=== PATIENT | female | born 1945 | race Caucasian/White ===

== ENCOUNTER 2018-06-09 12:14 | Emergency (ER) | payer OTHER ==
[~2018-06-09] VITALS: Ht 167.6 cm; Wt 81.7 kg
[~2018-06-09 12:14] MED LIST: ALBIPROI INH; ALBU90OI INH; ALBU90OI61 INH; ALPR1 PO; AMLO5 PO; ASPI81CH PO; AZIT250 PO; Adult Low Dose81 MG PO; Ativan0.5 MG PO; BELSOMRA10 MG PO; BUSP10 PO; CHOL10002; CHOL10002 PO; CIPR500 PO; CITA20 PO; CYCL10 PO; DIAZ10; DIAZ5; ELIQUIS2.5 MG PO; ESOM20 PO; ESTR1; ESTR2; ESTR2 PO; FLUSAL1005 INH; FLUSAL2505 IH; FLUSAL2505 INH; FURO20 PO; GABA300 PO; GLIP10 PO; GLIP5 PO; GUAI600T33 PO; HYDACE5; HYDACE5 PO; HYDMOR4 PO; HYDPAM25 PO; Hair, Skin & N1 EACH PO; INDO25 PO; INSDET100 SC; INSULANPEN SC; Klor-Con M1010 MEQ PO; LANS30EC PO; LAVAP17G PO; LEVSOD100 PO; LOSA25 PO; LOSA50 PO; METPRE4 PO; METPRE4DP PO; MULVITMIND PO; Miralax17 GM PO; NAPR375 PO; Norco 5-325 Ta1 EACH PO; OLME20 PO; OMEP20ER PO; OMEP40CA12 PO; OXYACE5T PO; OXYC10TA19 PO; OXYC15ER PO; OXYC30 PO; OXYC5; OXYC5 PO; PANT40 PO; PHENA100 PO; PRAV20 PO; PROM25 PO; RXCYCL10 PO; RXOXYACE PO; RXTRAM50 PO; SENN187 PO; SPACER IH; SUCR1 PO; THYROID MED; TRAM50 PO; TRAZ100 PO; TRIA80TC TOP; VENL150ER PO; Valium10 MG PO; Ventolin/Prove6.7 GM; Zofran Odt8 MG SL; Zofran8 MG PO
== END 2018-06-09 13:00 | disposition home or self-care (01) ==
LOC: ER 12:14
DX: M25.511 Pain in right shoulder (principal); Z88.8 Allergy status to other drugs, medicaments and biological substances; Z79.4 Long term (current) use of insulin; Z79.899 Other long term (current) drug therapy; Z79.82 Long term (current) use of aspirin; J44.9 Chronic obstructive pulmonary disease, unspecified; F32.9 Major depressive disorder, single episode, unspecified; E11.9 Type 2 diabetes mellitus without complications; I10 Essential (primary) hypertension; Z87.891 Personal history of nicotine dependence
CPT/HCPCS: 96372; 99282-25; J1170

== ENCOUNTER 2018-06-19 06:39 | Emergency (ER) | payer OTHER ==
[~2018-06-19] VITALS: Ht 167.6 cm; Wt 81.7 kg
[2018-06-19] MEDS ORDERED: Miralax17 GM PO (07:15)
== END 2018-06-19 07:24 | disposition home or self-care (01) ==
LOC: ER 06:39
DX: K59.03 Drug induced constipation (principal); R19.5 Other fecal abnormalities; T40.2X5A Adverse effect of other opioids, initial encounter; T47.6X5A Adverse effect of antidiarrheal drugs, initial encounter; Z88.8 Allergy status to other drugs, medicaments and biological substances; Z79.899 Other long term (current) drug therapy; Z79.4 Long term (current) use of insulin; Z79.82 Long term (current) use of aspirin; J44.9 Chronic obstructive pulmonary disease, unspecified; F32.9 Major depressive disorder, single episode, unspecified; F41.9 Anxiety disorder, unspecified; E11.9 Type 2 diabetes mellitus without complications; I10 Essential (primary) hypertension; Z87.891 Personal history of nicotine dependence
CPT/HCPCS: 99283

== ENCOUNTER 2018-06-20 06:31 | Emergency (ER) | payer OTHER ==
[~2018-06-20] VITALS: Ht 167.6 cm; Wt 81.7 kg
[2018-06-20 08:03] LABS: BASOPHILS ABSOLUTE AUTO 0.05 K/mm3 (0.00-0.23); BASOPHILS PERCENT AUTO 0 % (0-2); EOSINOPHILS ABSOLUTE AUTO 0.11 K/mm3 (0.00-0.68); EOSINOPHILS PERCENT AUTO 1 % (0-6); Hematocrit 45.2 % (33.0-51.0); Hemoglobin 14.5 g/dL (11.5-16.0); IMMATURE GRAN ABSOLUTE AUTO 0.04 K/mm3 (0.00-0.10); IMMATURE GRAN PERCENT AUTO 0 % (0-1); LYMPHOCYTES ABSOLUTE AUTO 2.53 K/mm3 (0.84-5.20); LYMPHOCYTES PERCENT AUTO 20 % (21-46); MONOCYTES ABSOLUTE AUTO 1.31 K/mm3 (0.16-1.47); MONOCYTES PERCENT AUTO 11 % (4-13); Mean Corpuscular HGB 29.1 pg (26.0-34.0); Mean Corpuscular HGB Conc 32.1 g/dL (31.5-36.5); Mean Corpuscular Volume 91 fL (80-100); Mean Platelet Volume 11.4 fL (9.1-12.4); NEUTROPHILS ABSOLUTE AUTO 8.48 K/mm3 (1.96-9.15); NEUTROPHILS PERCENT AUTO 68 % (41-73); Platelet Count 177 K/mm3 (150-400); RDW Coefficient Variation 14.3 % (11.7-14.2); Red Blood Cell Count 4.99 M/mm3 (3.80-5.20); White Blood Cell Count 12.52 K/mm3 (4.00-11.30)
[2018-06-20 08:18] LABS: Alanine Aminotransfer (ALT/SGP 19 U/L (12-78); Albumin, Blood 2.9 g/dL (3.4-5.0); Albumin/Globulin Ratio 0.7 (0.8-1.8); Alk Phos 64 U/L (50-136); Anion Gap 9 mmol/L (6-16); Aspartate Aminotrans (AST/SGOT 21 U/L (12-37); Bilirubin, Total 1.3 mg/dL (0.1-1.0); Blood Urea Nitrogen 17 mg/dL (8-24); Bun/Creatinine Ratio 11.5 (12.0-20.0); CO2, Blood 28 mmol/L (21-32); Calcium, Blood 8.5 mg/dL (8.5-10.1); Chloride, Blood 99 mmol/L (98-108); Creatinine, Blood 1.48 mg/dL (0.40-1.00); Globulin, Blood 4.2 g/dL (2.2-4.0); Glomerular Filtration Rate 37 (60-); Glucose, Blood 121 mg/dL (70-99); Potassium, Blood 4.2 mmol/L (3.5-5.5); Sodium, Blood 136 mmol/L (136-145); Total Protein, Blood 7.1 g/dL (6.4-8.2)
[2018-06-20 09:29] LABS: Source, Urine Clean Catch
[2018-06-20 09:32] LABS: Bilirubin, Urine Neg (Neg); Blood, Urine 4+ (Neg); Glucose Qualitative, Urine Neg (Neg); Ketones, Urine Neg (Neg); Leukocyte Esterase, Urine Neg (Neg); Nitrite, Urine Neg (Neg); Protein, Urine 3+ (Neg); Urobilinogen, Urine 2+ (Normal); pH, Urine 6.5 (5.0-8.0)
[2018-06-20 09:51] LABS: Appearance, Urine Clear (Clear); Bacteria Not Seen /hpf; Color, Urine Yellow (P-Yellow); Squamous Epithelial Cells Not Seen /hpf (Few); White Blood Cells, Urine Not Seen /hpf (0-5)
== END 2018-06-20 10:58 | disposition home or self-care (01) ==
LOC: ER 06:31
PROVIDERS: Emergency Medicine
DX: R10.9 Unspecified abdominal pain (principal); J44.9 Chronic obstructive pulmonary disease, unspecified; F32.9 Major depressive disorder, single episode, unspecified; F41.9 Anxiety disorder, unspecified; E11.9 Type 2 diabetes mellitus without complications; I10 Essential (primary) hypertension; Z87.891 Personal history of nicotine dependence; Z88.8 Allergy status to other drugs, medicaments and biological substances; Z79.899 Other long term (current) drug therapy
CPT/HCPCS: 36415; 74177; 76705; 80053; 81001; 83690; 85025; 96361; 96374; 96375; 99284-25; J1170; J2405; J7120; Q9967

== ENCOUNTER 2019-05-27 09:22 | Emergency (ER) | payer OTHER ==
[~2019-05-27] VITALS: Ht 167.6 cm; Wt 77.1 kg
[~2019-05-27 09:22] MED LIST changes: -INDO25 PO; +Indomethacin25 MG PO; +LEVSOD50 PO; +PROAIR RESPICL90 MCG INH; -Ventolin/Prove6.7 GM
[2019-05-27] MEDS ORDERED: OXYCODONE HCL E15 MG PO (09:52)
[2019-05-28] MEDS ORDERED: METPRE4DP PO (21:04)
== END 2019-05-27 11:12 | disposition home or self-care (01) ==
LOC: ER 09:22
DX: M54.32 Sciatica, left side (principal); J44.9 Chronic obstructive pulmonary disease, unspecified; E11.22 Type 2 diabetes mellitus with diabetic chronic kidney disease; I12.9 Hypertensive chronic kidney disease with stage 1 through stage 4 chronic kidney disease, or unspecified chronic kidney disease; N18.9 Chronic kidney disease, unspecified; F41.8 Other specified anxiety disorders; Z87.891 Personal history of nicotine dependence; Z79.82 Long term (current) use of aspirin; Z79.4 Long term (current) use of insulin; Z79.899 Other long term (current) drug therapy
CPT/HCPCS: 96372; 99283-25; J1170

== ENCOUNTER 2019-05-28 15:56 | Emergency (ER) | payer OTHER ==
[~2019-05-28] VITALS: Ht 167.6 cm; Wt 77.1 kg
[~2019-05-28 15:56] MED LIST changes: +OXYCODONE HCL E15 MG PO
[2019-05-28 16:29] LABS: BASOPHILS ABSOLUTE AUTO 0.05 K/mm3 (0.00-0.23); BASOPHILS PERCENT AUTO 1 % (0-2); EOSINOPHILS ABSOLUTE AUTO 0.63 K/mm3 (0.00-0.68); EOSINOPHILS PERCENT AUTO 7 % (0-6); Hematocrit 49.9 % (33.0-51.0); Hemoglobin 15.8 g/dL (11.5-16.0); IMMATURE GRAN ABSOLUTE AUTO 0.02 K/mm3 (0.00-0.10); IMMATURE GRAN PERCENT AUTO 0 % (0-1); LYMPHOCYTES ABSOLUTE AUTO 3.81 K/mm3 (0.84-5.20); LYMPHOCYTES PERCENT AUTO 44 % (21-46); MONOCYTES ABSOLUTE AUTO 0.69 K/mm3 (0.16-1.47); MONOCYTES PERCENT AUTO 8 % (4-13); Mean Corpuscular HGB 29.7 pg (26.0-34.0); Mean Corpuscular HGB Conc 31.7 g/dL (31.5-36.5); Mean Corpuscular Volume 94 fL (80-100); Mean Platelet Volume 11.2 fL (9.1-12.4); NEUTROPHILS ABSOLUTE AUTO 3.43 K/mm3 (1.96-9.15); NEUTROPHILS PERCENT AUTO 40 % (41-73); Platelet Count 168 K/mm3 (150-400); RDW Coefficient Variation 13.9 % (11.7-14.2); RDW Standard Deviation 48.2 fL (35.1-46.3); Red Blood Cell Count 5.32 M/mm3 (3.80-5.20); White Blood Cell Count 8.63 K/mm3 (4.00-11.30)
[2019-05-28 16:49] LABS: C-REACTIVE PROTEIN, EXT RANGE 0.375 mg/dL (0.000-0.300)
[2019-05-28 16:51] LABS: Albumin, Blood 3.7 g/dL (3.4-5.0); Albumin/Globulin Ratio 0.9 (0.8-1.8); Bilirubin, Total 0.7 mg/dL (0.1-1.0); Bun/Creatinine Ratio 12.5 (12.0-20.0); Calcium, Blood 8.6 mg/dL (8.5-10.1); Creatinine, Blood 1.44 mg/dL (0.40-1.00); Potassium, Blood 4.7 mmol/L (3.5-5.5); Total Protein, Blood 7.7 g/dL (6.4-8.2)
[2019-05-28 17:44] LABS: Source, Urine Clean Catch
[2019-05-28 17:51] LABS: Bilirubin, Urine Neg (Neg); Blood, Urine 2+ (Neg); Glucose Qualitative, Urine Neg (Neg); Ketones, Urine Neg (Neg); Leukocyte Esterase, Urine 2+ (Neg); Nitrite, Urine Neg (Neg); Protein, Urine 3+ (Neg); Urobilinogen, Urine NORM (Normal); pH, Urine 6.5 (5.0-8.0)
[2019-05-28 17:57] LABS: Appearance, Urine Hazy (Clear); Color, Urine Pale Yellow (P-Yellow)
[2019-05-28 17:59] LABS: Red Blood Cells, Urine 0-2 /hpf (0-2); Squamous Epithelial Cells Few /hpf (Few)
[2019-05-28 18:00] LABS: Bacteria Few /hpf
[2019-05-28] MEDS ORDERED: METPRE4DP PO (21:04)
== END 2019-05-28 21:15 | disposition home or self-care (01) ==
LOC: ER 15:56
PROVIDERS: Physician Assistant
DX: M54.32 Sciatica, left side (principal); Z88.8 Allergy status to other drugs, medicaments and biological substances; Z79.4 Long term (current) use of insulin; Z79.899 Other long term (current) drug therapy; Z79.82 Long term (current) use of aspirin; J44.9 Chronic obstructive pulmonary disease, unspecified; E11.9 Type 2 diabetes mellitus without complications; I10 Essential (primary) hypertension; F32.9 Major depressive disorder, single episode, unspecified; F41.9 Anxiety disorder, unspecified; Z87.891 Personal history of nicotine dependence
CPT/HCPCS: 36415; 72100; 80053; 81001; 85025; 85651; 86140; 87086; 96372; 99283-25; J1170

== ENCOUNTER 2019-06-16 09:01 | Inpatient (IN) | payer OTHER ==
[~2019-06-16] VITALS: Ht 167.6 cm; Wt 74.0 kg
[2019-06-16 09:34] LABS: BASOPHILS ABSOLUTE AUTO 0.04 K/mm3 (0.00-0.23); BASOPHILS PERCENT AUTO 0 % (0-2); EOSINOPHILS ABSOLUTE AUTO 0.03 K/mm3 (0.00-0.68); EOSINOPHILS PERCENT AUTO 0 % (0-6); Hemoglobin 17.9 g/dL (11.5-16.0); IMMATURE GRAN ABSOLUTE AUTO 0.08 K/mm3 (0.00-0.10); IMMATURE GRAN PERCENT AUTO 0 % (0-1); LYMPHOCYTES ABSOLUTE AUTO 4.42 K/mm3 (0.84-5.20); LYMPHOCYTES PERCENT AUTO 22 % (21-46); MONOCYTES ABSOLUTE AUTO 1.44 K/mm3 (0.16-1.47); MONOCYTES PERCENT AUTO 7 % (4-13); Mean Corpuscular HGB 30.4 pg (26.0-34.0); Mean Corpuscular HGB Conc 34.4 g/dL (31.5-36.5); Mean Corpuscular Volume 88 fL (80-100); Mean Platelet Volume 10.6 fL (9.1-12.4); NEUTROPHILS ABSOLUTE AUTO 14.49 K/mm3 (1.96-9.15); NEUTROPHILS PERCENT AUTO 71 % (41-73); Platelet Count 280 K/mm3 (150-400); RDW Coefficient Variation 13.8 % (11.7-14.2); RDW Standard Deviation 44.4 fL (35.1-46.3); Red Blood Cell Count 5.89 M/mm3 (3.80-5.20)
[2019-06-16 09:46] LABS: Albumin, Blood 3.5 g/dL (3.4-5.0); Albumin/Globulin Ratio 0.8 (0.8-1.8); Bun/Creatinine Ratio 33.6 (12.0-20.0); Calcium, Blood 9.5 mg/dL (8.5-10.1); Creatinine, Blood 1.16 mg/dL (0.40-1.00); Globulin, Blood 4.2 g/dL (2.2-4.0); Potassium, Blood 3.5 mmol/L (3.5-5.5); Total Protein, Blood 7.7 g/dL (6.4-8.2); Troponin I 0.019 ng/mL (0.000-0.040)
[2019-06-16 12:10] LABS: Source, Urine Catheter
[2019-06-16 12:21] LABS: Bilirubin, Urine Neg (Neg); Blood, Urine 4+ (Neg); Glucose Qualitative, Urine 2+ (Neg); Ketones, Urine 2+ (Neg); Leukocyte Esterase, Urine 2+ (Neg); Nitrite, Urine Neg (Neg); Protein, Urine 3+ (Neg); Specific Gravity, Urine 1.015 (1.003-1.022); Urobilinogen, Urine 3+ (Normal); pH, Urine 6.5 (5.0-8.0)
[2019-06-16 12:38] LABS: Appearance, Urine Hazy (Clear); Color, Urine Yellow (P-Yellow)
[2019-06-16 12:41] LABS: Bacteria Mod /hpf; Squamous Epithelial Cells Mod /hpf (Few); Transitional Epithelial Cells Rare /hpf (0-Rare)
[2019-06-16] MEDS ORDERED: DIAZ5 PO (13:33)
[2019-06-16 15:27] LABS: Magnesium, Blood 2.2 mg/dL (1.6-2.4)
[2019-06-16 15:29] LABS: Phosphorus, Blood 2.9 mg/dL (2.5-4.9); Thyroid Stimulating Hormone 5.24 uIU/mL (0.360-4.800)
[2019-06-16 19:52] LABS: Influenza A Negative (NEGATIVE); Influenza B Negative (NEGATIVE)
[2019-06-17 04:22] LABS: BASOPHILS ABSOLUTE AUTO 0.04 K/mm3 (0.00-0.23); BASOPHILS PERCENT AUTO 0 % (0-2); EOSINOPHILS ABSOLUTE AUTO 0.12 K/mm3 (0.00-0.68); EOSINOPHILS PERCENT AUTO 1 % (0-6); Hematocrit 49.2 % (33.0-51.0); Hemoglobin 16.4 g/dL (11.5-16.0); IMMATURE GRAN ABSOLUTE AUTO 0.05 K/mm3 (0.00-0.10); IMMATURE GRAN PERCENT AUTO 0 % (0-1); LYMPHOCYTES ABSOLUTE AUTO 4.18 K/mm3 (0.84-5.20); LYMPHOCYTES PERCENT AUTO 31 % (21-46); MONOCYTES ABSOLUTE AUTO 1.25 K/mm3 (0.16-1.47); MONOCYTES PERCENT AUTO 9 % (4-13); Mean Corpuscular HGB 30.1 pg (26.0-34.0); Mean Corpuscular HGB Conc 33.3 g/dL (31.5-36.5); Mean Corpuscular Volume 90 fL (80-100); Mean Platelet Volume 10.7 fL (9.1-12.4); NEUTROPHILS ABSOLUTE AUTO 8.01 K/mm3 (1.96-9.15); NEUTROPHILS PERCENT AUTO 59 % (41-73); Platelet Count 242 K/mm3 (150-400); RDW Coefficient Variation 13.9 % (11.7-14.2); RDW Standard Deviation 46.3 fL (35.1-46.3); Red Blood Cell Count 5.44 M/mm3 (3.80-5.20); White Blood Cell Count 13.65 K/mm3 (4.00-11.30)
[2019-06-17 04:39] LABS: Albumin, Blood 2.9 g/dL (3.4-5.0); Albumin/Globulin Ratio 0.8 (0.8-1.8); Bilirubin, Total 0.9 mg/dL (0.1-1.0); Bun/Creatinine Ratio 24.1 (12.0-20.0); Calcium, Blood 8.6 mg/dL (8.5-10.1); Creatinine, Blood 0.99 mg/dL (0.40-1.00); Globulin, Blood 3.5 g/dL (2.2-4.0); Potassium, Blood 3.9 mmol/L (3.5-5.5); Total Protein, Blood 6.4 g/dL (6.4-8.2)
--- NOTE | 2019-06-17 06:25 | NUR ---
SHIFT SUMMARY PT ALERT AND ORIENTED TO SELF; PT VERY ANXIOUS AND CONTINUALLY EXPRESSES DISSATISFACTION W/ STAFF; MAKES EXAGERATED STATEMENTS; PT REASSURED OF CARE AND TREATMENT AND ENCOURAGED OF PROGRESS MADE THROUGH THE NIGHT; BP ELEVATED AND PRN HYDRALAZINED ADMINISTERED PER EMAR; Q2 CBG PERFORMED TO MONITOR; D5 GTT AT 100/HR; CALL LIGHT IN REACH; BED IN LOWEST POSITION; WILL CONTINUE TO MONITOR CLOSELY UNTIL HAND OFF TO DAY SHIFT RN.
--- NOTE | 2019-06-17 18:15 | NUR ---
SHIFT SUMMARY NO ACUTE CHANGES NOTED THROUGH THE SHIFT. PT REMAINS A&O X4, RESP UNLABORED, 1 ASSIST TO THE BSC. BP REMAINS ELEVATED, IV HYDRALAZINE x1, PT CONTINUES TO C/O NAUSEA/ABD PAIN, SHE HAS BEEN MEDICATED PRN PER EMAR. NO BM NOTED, STATES SHE IS PASSING FLATUES, NO EMESIS. PT CONTINUES TO BE ANXIOUS AND DEMANDING, AND STATES THE STAFF IS TELLING HER THINGS ABOUT HER CARE THAT HAVE NOT NOT HAPPENED. SHE STATES THAT "YOU TOLD ME I HAD A BP OF "267/8SOMETHING" AFTER THAT SHE STARTED TO RAISE HER VOIVE AND ACCUSE OF LYING TO HER AND WANTING TO CAUSE HARM. THE NOC NURSE STATED IN REPORT THAT THE PT HAD ACCUSED HER OF WANTING TO CAUSE HARM WELL. THE CHARGE NURSE WAS NOTIFIED & EVENING MEDS WERE GIVEN BY HER. CALL LIGHT REMAINS IN REACH. REPORT WILL BE GIVEN TO NOC RN
--- NOTE | 2019-06-18 01:14 | NUR ---
ARIVED TO FLOOR TRANSFER FROM PCU 6, RECIEVED REPORT FROM HARVINDER ABDI. PT ARRIVED BY BED.
--- NOTE | 2019-06-18 01:30 | NUR ---
PT A&O; PT ON RA W/ O2 SATS >94; LUNG SOUNDS DIM IN BASES; PT USES BEDSIDE COMMODE; CBG REPORTED TO PROVIDER AND ORDERS GIVEN TO DC D5 GTT; TELE REMOVED AND PT PREPARED TO TRANSFER TO MED FLOOR; REPORT GIVEN TO MED FLOOR RN AND PT TRANSFERED TO VIA BED W/ AID AND RN.
--- NOTE | 2019-06-18 01:57 | NUR ---
TRANSFER ASSESSMENT AOX4. FOLLOWS DIRECTIONS, ANSWERS QUESTIONS APPROPRIATELY. REPORTS 7/10 PAIN IN L LEG/FOOT & BACK, MEDICATED W/25 MCG FENTANYL PER ORDERS & WHEN REASSESSED PT DENIES ANY RELIEF. L FOOT HAS SWELLING ON SOLE & ANKLE, IS RED/TENDER/WARM TO TOUCH. REPORTS NAUSEA, NO EMESIS NOTED MEDICATED W/ZOFRAN, ABD NON TENDER TO PALPATION. REPORTS FEELING ANXIOUS & IS TEARFUL DURING MY ASSESSMENT STATES HER DAUGHTER 15 YRS AGO & STRUGGLES W/THIS LOSS DAILY. STARTS TALKING ABOUT HOW SHE DOESN'T KEEP HER REFRIGERATOR FULL "BECAUSE I'M AFRAID IT'S GOING TO GET ME." STATES SHE NORMALLY TAKES DIAZEPAM BUT IT WAS RECENTLY DC'D BY HER PRIMARY DR BECAUSE SHE WAS TAKING OXYCODONE & SHE WAS TOLD BOTH COULD NOT BE TAKEN AT SAME TIME. BP IS ELEVATED @177/56, GAVE 10MG HYDRALAZINE & BP TRENDED DOWN TO 167/53. CALL LIGHT IN REACH. TM.
--- NOTE | 2019-06-18 03:05 | NUR ---
ANXIOUS/TEARFUL ANSWERED PTS CALL LIGHT, SHE ASKED FOR DIFFERENT UNDERWEAR STATING THE ONES SHE WAS WEARING WHERE BOTHERING HER THEN STATES SHE HAS ITCHY EYES & ASKS FOR EYE DROPS, INFORMED PT I WOULD ASK HOSPITALIST. THEN PT STATED SHE WAS HAVING DIFFICULTY SLEEPING & GOT TEARFUL "I CAN'T TURN OFF MY BRAIN, I KEEP THINKING ABOUT ALL THE BAD THINGS." INFORMED PT I WOULD CALL HOSPITALIST & SEE IF THERE WAS ANYTHING ELSE WE COULD GIVE HER. THEN PT STARTED HANDING ME DIFFERENT PILLS FROM HER PURSE THAT WHERE UNLABELED & STATED 3 OF THEM WHERE OXYCODONE, INFORMED CHARGE NURSE BRYCE NICHOLSON & PLACED ALL LOOSE MEDS IN A PLASTIC BAG IN LOCK BOX IN ROOM. WCTM.
--- NOTE | 2019-06-18 06:44 | NUR ---
SHIFT SUMMARY AOX4. ANXIOUS, TEARFUL EARLIER IN SHIFT, READ PREVIOUS NOTE. FINALLY FELL ASLEEP AROUND 0345 THIS AM & HAS GOTTEN ROUGHLY 3 HRS OF SLEEP SO FAR. DENIES DYSPNEA OR FURTHER NAUSEA THIS AM. REPORTS PAIN IN BACK THIS AM & WAS MEDICATED W/TYLENOL PER ORDERS. IS PLEASENT & COOPERATIVE W/CARE. STATES SHE IS HOPING SHE GETS TO GO HOME. CALL LIGHT IN REACH. TM.
[2019-06-18 07:45] LABS: BASOPHILS ABSOLUTE AUTO 0.06 K/mm3 (0.00-0.23); BASOPHILS PERCENT AUTO 1 % (0-2); EOSINOPHILS ABSOLUTE AUTO 0.24 K/mm3 (0.00-0.68); EOSINOPHILS PERCENT AUTO 2 % (0-6); Hematocrit 50.3 % (33.0-51.0); Hemoglobin 16.7 g/dL (11.5-16.0); IMMATURE GRAN ABSOLUTE AUTO 0.02 K/mm3 (0.00-0.10); IMMATURE GRAN PERCENT AUTO 0 % (0-1); LYMPHOCYTES ABSOLUTE AUTO 4.69 K/mm3 (0.84-5.20); LYMPHOCYTES PERCENT AUTO 39 % (21-46); MONOCYTES ABSOLUTE AUTO 1.15 K/mm3 (0.16-1.47); MONOCYTES PERCENT AUTO 10 % (4-13); Mean Corpuscular HGB 30.1 pg (26.0-34.0); Mean Corpuscular HGB Conc 33.2 g/dL (31.5-36.5); Mean Corpuscular Volume 91 fL (80-100); Mean Platelet Volume 10.4 fL (9.1-12.4); NEUTROPHILS ABSOLUTE AUTO 5.92 K/mm3 (1.96-9.15); NEUTROPHILS PERCENT AUTO 49 % (41-73); Platelet Count 253 K/mm3 (150-400); RDW Coefficient Variation 13.8 % (11.7-14.2); RDW Standard Deviation 45.8 fL (35.1-46.3); Red Blood Cell Count 5.55 M/mm3 (3.80-5.20); White Blood Cell Count 12.08 K/mm3 (4.00-11.30)
[2019-06-18 08:15] LABS: Albumin/Globulin Ratio 0.8 (0.8-1.8); Bilirubin, Total 0.9 mg/dL (0.1-1.0); Bun/Creatinine Ratio 13.8 (12.0-20.0); Calcium, Blood 8.6 mg/dL (8.5-10.1); Creatinine, Blood 1.23 mg/dL (0.40-1.00); Globulin, Blood 3.6 g/dL (2.2-4.0); Potassium, Blood 3.8 mmol/L (3.5-5.5); Total Protein, Blood 6.6 g/dL (6.4-8.2)
[2019-06-18] MEDS ORDERED: AMLO5 PO (11:38)
[2019-06-18] MEDS ORDERED: ONE DAILY FOR1 EAC3 PO (11:39)
[2019-06-18] MEDS ORDERED: ALLO100 PO (11:49)
--- NOTE | 2019-06-18 17:21 | NUR ---
SUMMARY PT IS A/O X4, GENERALLY PLEASANT HOWEVER EASILY ANXIOUS, DR LOERA START VISTORIL 25 MG TODAY R/T. PT STATE NO NAUSEA HOWEVER APPETITE POOR, STATE FOOD CHOICES NOT APPETIZING. DX UTI, IV ANTIBX CONTINUE, SHE IS AFEBRILE, WBC 12. SHE HAS HAD MULT BM'S TODAY. SBP ELEVATED THIS AFTERNOON, 174, PRN HYDRALAZINE GIVEN ACCORDING TO PARAMETERS. SHE C/O CHR BACK PAIN, PRN FENANYL GIVEN FOR RELIEF.
[2019-06-19 05:47] LABS: Bun/Creatinine Ratio 14.4 (12.0-20.0); Creatinine, Blood 1.32 mg/dL (0.40-1.00); Potassium, Blood 3.9 mmol/L (3.5-5.5)
--- NOTE | 2019-06-19 05:47 | NUR ---
SHIFT SUMMARY AOX4. JAMUL. BP ELEVATED LAST NIGHT @174/57, GAVE HYDRALAZINE PER ORDERS & BP DECREASED TO 124/87, VSS REST OF SHIFT. DENIES ANY NAUSEA, EMESIS OR DYSPNEA. REPORTS CONTANT 6-01/13 PAIN L LEG & ALLOVER, MEDICATED W/TYLENOL 1X W/NO RELIEF OF PAIN & 3X W/FENTANYL W/LITTLE TO NO RELIEF OF PAIN. REPORTED DRY ITCHY SORE THROAT & STATED SHE NORMALLY TAKES CEPACOL LOSANGES, RECIEVED ORDER FOR LOSANGES FROM DR PAZ. REPORTS ANXIOUSNESS LAST NIGHT, GAVE 5MG VALIUM FIRST, 2 HRS LATER PT STILL REPORTED FEELING ANXIOUS SO I GAVE VISTARIL & MELATONIN PER ORDERS & PT WAS ABLE TO FINALLY GET SOME REST. HAS TOLERATED SMALL AMOUNTS REG DIET. CALL LIGHT IN REACH. WCTM.
--- NOTE | 2019-06-19 14:24 | NUR ---
discharge PT STATE FEELING IMPROVED, STATE SHE WANT TO GO HOME TODAY. POLE SHAVER HELPER ASSIST HER TO SHOWER, SHE DRESS IN STREET CLOTHES DETERMINED SHE WILL GO HOME. SHE IS GENERALLY PLEASANT HOWEVER ANXIOUS, SOMEWHAT SUSPICIOUS. DR GUIDO IN TO SEE HER THIS AFTERNOON. STATE OK FOR D/C HOME, NO NEW MEDS. IV D/C INTACT. D/C INSTRUCT PROVIDED. FRIEND IN TO PICK HER UP, POLE SHAVER HELPER PROVIDE W/C TRANSFER FROM HOSP.
== END 2019-06-19 13:55 | disposition home or self-care (01) | DRG 690 ==
LOC: ER 09:01 → PCU 15:03 → MEDS 06-18 01:08
PROVIDERS: Nurse Practitioner Acute Care; Physician Assistant; ADMIT Internal Medicine
DX: N39.0 Urinary tract infection, site not specified (principal); F11.20 Opioid dependence, uncomplicated; R11.2 Nausea with vomiting, unspecified; E11.649 Type 2 diabetes mellitus with hypoglycemia without coma; I16.0 Hypertensive urgency; I12.9 Hypertensive chronic kidney disease with stage 1 through stage 4 chronic kidney disease, or unspecified chronic kidney disease; N18.3 Chronic kidney disease, stage 3 (moderate); J44.9 Chronic obstructive pulmonary disease, unspecified; E11.22 Type 2 diabetes mellitus with diabetic chronic kidney disease; E03.9 Hypothyroidism, unspecified; K74.60 Unspecified cirrhosis of liver; K21.9 Gastro-esophageal reflux disease without esophagitis; G89.29 Other chronic pain; M54.9 Dorsalgia, unspecified; F32.9 Major depressive disorder, single episode, unspecified; F41.9 Anxiety disorder, unspecified; Z87.891 Personal history of nicotine dependence; Z86.711 Personal history of pulmonary embolism; Z88.8 Allergy status to other drugs, medicaments and biological substances; Z79.82 Long term (current) use of aspirin; Z79.4 Long term (current) use of insulin; Z79.899 Other long term (current) drug therapy
CPT/HCPCS: 36415; 51701; 73630; 74176; 76705; 80048; 80053; 81001; 82947; 83036; 83605; 83690; 83735; 84100; 84439; 84443; 84484; 85025; 87086; 87804; 93005; 93010; 94640; 94760; 96361; 96365; 96367; 96375; 96376; 99285-25; A9270; A9270-GY; C9113; J0360; J0696; J2270; J2405; J2550; J2765; J3010; J3360; J3480; J7030; J7042; J7050; J7799; Q0177

== ENCOUNTER 2019-07-05 16:15 | Inpatient (IN) | payer OTHER ==
[~2019-07-05] VITALS: Ht 167.6 cm; Wt 86.1 kg
[~2019-07-05 16:15] MED LIST changes: +ALLO100 PO; -CHOL10002 PO; +DIAZ5 PO; -OMEP40CA12 PO; +OMEPRAZOLE20 MG PO; +ONE DAILY FOR1 EAC3 PO; -OXYCODONE HCL E15 MG PO; +ROXYBOND5 MG PO; +VITAMIN D32000 UNI3 PO
[2019-07-05 16:57] LABS: BASOPHILS ABSOLUTE AUTO 0.03 K/mm3 (0.00-0.23); BASOPHILS PERCENT AUTO 0 % (0-2); EOSINOPHILS ABSOLUTE AUTO 0.07 K/mm3 (0.00-0.68); EOSINOPHILS PERCENT AUTO 1 % (0-6); Hematocrit 40.7 % (33.0-51.0); Hemoglobin 13.6 g/dL (11.5-16.0); IMMATURE GRAN ABSOLUTE AUTO 0.03 K/mm3 (0.00-0.10); IMMATURE GRAN PERCENT AUTO 0 % (0-1); LYMPHOCYTES ABSOLUTE AUTO 1.12 K/mm3 (0.84-5.20); LYMPHOCYTES PERCENT AUTO 12 % (21-46); MONOCYTES ABSOLUTE AUTO 0.49 K/mm3 (0.16-1.47); MONOCYTES PERCENT AUTO 5 % (4-13); Mean Corpuscular HGB 30.8 pg (26.0-34.0); Mean Corpuscular HGB Conc 33.4 g/dL (31.5-36.5); Mean Corpuscular Volume 92 fL (80-100); Mean Platelet Volume 11.3 fL (9.1-12.4); NEUTROPHILS PERCENT AUTO 82 % (41-73); Platelet Count 266 K/mm3 (150-400); RDW Coefficient Variation 13.9 % (11.7-14.2); RDW Standard Deviation 47.6 fL (35.1-46.3); Red Blood Cell Count 4.41 M/mm3 (3.80-5.20); White Blood Cell Count 9.54 K/mm3 (4.00-11.30)
[2019-07-05 17:10] LABS: International Normalized Ratio 0.99; Prothrombin Time Results 10.6 Sec (9.7-11.5)
[2019-07-05 17:15] LABS: Alanine Aminotransfer (ALT/SGP 28 U/L (12-78); Albumin, Blood 3.1 g/dL (3.4-5.0); Albumin/Globulin Ratio 0.8 (0.8-1.8); Alk Phos 95 U/L (50-136); Anion Gap 7 mmol/L (6-16); Aspartate Aminotrans (AST/SGOT 32 U/L (12-37); Bilirubin, Total 0.7 mg/dL (0.1-1.0); Blood Urea Nitrogen 41 mg/dL (8-24); Bun/Creatinine Ratio 17.6 (12.0-20.0); CO2, Blood 25 mmol/L (21-32); Calcium, Blood 8.8 mg/dL (8.5-10.1); Chloride, Blood 91 mmol/L (98-108); Creatinine, Blood 2.33 mg/dL (0.40-1.00); Ethanol (Alcohol), Blood, Med <3 mg/dL; Glomerular Filtration Rate 22 (60-); Glucose, Blood 54 mg/dL (70-99); Potassium, Blood 5.5 mmol/L (3.5-5.5); Sodium, Blood 123 mmol/L (136-145); Total Protein, Blood 7.1 g/dL (6.4-8.2)
[2019-07-05 20:50] LABS: Thyroid Stimulating Hormone 4.66 uIU/mL (0.360-4.800)
--- NOTE | 2019-07-05 21:30 | NUR ---
2120 PT TO ROOM 313 PER CART FROM ER; REPORT RECEIVED FROM JIN CARD; ALERT AND ORIENTED X 1; ABLE TO FOLLOW SIMPLE VERBAL COMMANDS; BED ALARM APPLIED.
[2019-07-06 00:18] LABS: Bun/Creatinine Ratio 19.7 (12.0-20.0); Calcium, Blood 8.1 mg/dL (8.5-10.1); Creatinine, Blood 1.98 mg/dL (0.40-1.00); Potassium, Blood 5.2 mmol/L (3.5-5.5)
--- NOTE | 2019-07-06 01:03 | NUR ---
CBG PER LAB 63; PT DRANK 240ML APPLE JUICE (VOICED DISLIKE FOR MILK PRODUCTS); THIS NURSE ADVISED TRACY NICHOLSON RN, CHARGE NURSE; PT ALERT AND ABLE TO TAKE FOOD AND FLUIDS. PLAN TO RECHECK CBG IN 30 MINUTES.
[2019-07-06 05:39] LABS: Bun/Creatinine Ratio 19.8 (12.0-20.0); Calcium, Blood 8.2 mg/dL (8.5-10.1); Creatinine, Blood 1.82 mg/dL (0.40-1.00); Potassium, Blood 5.3 mmol/L (3.5-5.5)
--- NOTE | 2019-07-06 07:48 | NUR ---
ASSUMED CARE OF PATIENT. PATIENT PLEASANT AND ALERT TO SELF AND PLACE. SHE IS MILDLY CRANKY SHE NOTES THAT WE HAVE BEEN "BUGGING HER TOO MUCH" WITH THE BLOOD SUGARS AND IS GETTING CRANKY. SHE HAS A WARM BLANKET. BLOOD SUGAR WAS TAKEN THIS MORNING AT 0730 AND CAME BACK AT 99 ON D5/0.5NS.
--- NOTE | 2019-07-06 07:52 | NUR ---
UNABLE TO UPDATE PATIENT'S MEDS. SHE NOTES "I DON'T TAKE ANYTHING AT HOME ANYWAYS" BUT DID TELL ME SHE FILLS HER MEDICATIONS [facility]. WILL REQUEST A MEDICATION LIST FROM THE PHARMACY WHEN THEY OPEN.
[2019-07-06 08:01] LABS: Bun/Creatinine Ratio 19.3 (12.0-20.0); Creatinine, Blood 1.76 mg/dL (0.40-1.00); Potassium, Blood 5.5 mmol/L (3.5-5.5)
[2019-07-06 09:38] LABS: Bilirubin, Urine Neg (Neg); Blood, Urine 1+ (Neg); Glucose Qualitative, Urine Neg (Neg); Ketones, Urine Neg (Neg); Leukocyte Esterase, Urine 1+ (Neg); Nitrite, Urine Neg (Neg); Protein, Urine 2+ (Neg); Source, Urine Clean Catch; Specific Gravity, Urine 1.015 (1.003-1.022); Urobilinogen, Urine NORM (Normal)
[2019-07-06 09:49] LABS: Appearance, Urine Clear (Clear); Color, Urine Yellow (P-Yellow)
[2019-07-06 09:50] LABS: White Blood Cells, Urine 0-2 /hpf (0-5)
[2019-07-06 09:51] LABS: Bacteria Not Seen /hpf; Red Blood Cells, Urine 0-2 /hpf (0-2); Squamous Epithelial Cells Few /hpf (Few)
[2019-07-06 09:52] LABS: Granular Casts 0-2 /lpf (0)
[2019-07-06 09:53] LABS: Other Crystals Many /hpf
[2019-07-06 09:56] LABS: U Amphetamine Screen Not Detected; U Benzodiazapine Screen DETECTED; U Oxycodone Screen DETECTED
[2019-07-06 09:57] LABS: U Barbituate Screen Not Detected; U Buprenorphine Screen Not Detected; U Cannabinoids Screen Not Detected; U Cocaine Screen Not Detected; U Methadone Screen Not Detected; U Methamphetamine Screen Not Detected; U Opiates Screen Not Detected; U Phencyclidine Screen Not Detected; U Propoxyphene Screen Not Detected
[2019-07-06 11:19] LABS: Adenovirus Not Detected (NOT DETECT); Bordetella pertussis Not Detected (NOT DETECT); Chlamydophila pneumoniae Not Detected (NOT DETECT); Coronavirus 229E Not Detected (NOT DETECT); Coronavirus HKU1 Not Detected (NOT DETECT); Coronavirus NL63 Not Detected (NOT DETECT); Coronavirus OC43 Not Detected (NOT DETECT); Human Metapneumovirus Not Detected (NOT DETECT); Human Rhinovirus/Enterovirus Not Detected (NOT DETECT); Influenza A Not Detected (NOT DETECT); Influenza A/2009-H1 Not Detected (NOT DETECT); Influenza A/H1 Not Detected (NOT DETECT); Influenza A/H3 Not Detected (NOT DETECT); Influenza B Not Detected (NOT DETECT); Mycoplasma pneumoniae Not Detected (NOT DETECT); Parainfluenza Virus 1 Not Detected (NOT DETECT); Parainfluenza Virus 2 Not Detected (NOT DETECT); Parainfluenza Virus 3 Not Detected (NOT DETECT); Parainfluenza Virus 4 Not Detected (NOT DETECT); Respiratory Syncytial Virus Not Detected (NOT DETECT)
--- NOTE | 2019-07-07 04:27 | NUR ---
CADMIUM LIQUOR MAKER SUMMARY NO ACUTE CHANGES THIS SHIFT. PT AAOX3, PLEASANT AND COOPERATIVE BUT IS VERY IMPULSIVE AND DOES NOT CALL FOR ASSISTANCE. BED ALARM ON FOR SAFETY PT IS A HIGH FALL RISK. CBG 140'S AT HS. S, WILL CONTINUE TO MONITOR.
[2019-07-07 11:19] LABS: BASOPHILS ABSOLUTE AUTO 0.04 K/mm3 (0.00-0.23); BASOPHILS PERCENT AUTO 1 % (0-2); EOSINOPHILS ABSOLUTE AUTO 0.01 K/mm3 (0.00-0.68); EOSINOPHILS PERCENT AUTO 0 % (0-6); Hematocrit 39.2 % (33.0-51.0); IMMATURE GRAN ABSOLUTE AUTO 0.04 K/mm3 (0.00-0.10); IMMATURE GRAN PERCENT AUTO 1 % (0-1); LYMPHOCYTES ABSOLUTE AUTO 0.94 K/mm3 (0.84-5.20); LYMPHOCYTES PERCENT AUTO 11 % (21-46); MONOCYTES ABSOLUTE AUTO 0.76 K/mm3 (0.16-1.47); MONOCYTES PERCENT AUTO 9 % (4-13); Mean Corpuscular HGB 30.4 pg (26.0-34.0); Mean Corpuscular HGB Conc 33.2 g/dL (31.5-36.5); Mean Corpuscular Volume 92 fL (80-100); Mean Platelet Volume 10.8 fL (9.1-12.4); NEUTROPHILS ABSOLUTE AUTO 7.04 K/mm3 (1.96-9.15); NEUTROPHILS PERCENT AUTO 80 % (41-73); Platelet Count 248 K/mm3 (150-400); RDW Standard Deviation 47.2 fL (35.1-46.3); Red Blood Cell Count 4.27 M/mm3 (3.80-5.20); White Blood Cell Count 8.83 K/mm3 (4.00-11.30)
[2019-07-07 11:43] LABS: Albumin, Blood 2.9 g/dL (3.4-5.0); Albumin/Globulin Ratio 0.8 (0.8-1.8); Bilirubin, Total 0.9 mg/dL (0.1-1.0); Calcium, Blood 9.3 mg/dL (8.5-10.1); Creatinine, Blood 1.44 mg/dL (0.40-1.00); Globulin, Blood 3.8 g/dL (2.2-4.0); Potassium, Blood 4.9 mmol/L (3.5-5.5); Total Protein, Blood 6.7 g/dL (6.4-8.2)
[2019-07-07] MEDS ORDERED: DIAZ5 PO (12:29)
[2019-07-07] MEDS ORDERED: CLON.1 PO (12:32)
[2019-07-07] MEDS ORDERED: LOSA50 PO (12:33)
--- NOTE | 2019-07-07 16:24 | NUR ---
SUMMARY PT IS A/O X3 HOWEVER SOMEWHAT FORGETFUL OF EVENTS, ANXIOUS. DX HYPOGLYCEMIA, HER BLOOD SUGAR HAS BEEN 130-140. APPETITE FAIR. SHE HAD A FALL YESTERDAY, SIGNIFICANT BRUISING TO L ARM/L SHOULDER. SHE HAS BEEN UP MULT X'S TODAY, SBA GAIT STEADY. HER SBP HAS BEEN ELEVATED, DR ORDER HYDRALAZINE 10MG IV PRN FOR SBP >160. BNP ELEVATED 629, IV LASIX CONTINUES, GOOD URINE OUTPUT TODAY.
--- NOTE | 2019-07-08 04:29 | NUR ---
SHIFT SUMMARY PT HAS RESTED FOR MOST THE NIGHT, AND HAS DENIED NEEDS. MEDICATED AT THE BEGINNING OF THE SHIFT FOR CHRONIC NECK PAIN WITH EFFECT. PT HAS CALLED APPROPRIATELY. HYPERTENSIVE AT THE BEGINNING OF THE SHIFT THAT WAS REMEDIED WITH PO CLONIDINE. NO ACUTE CHANGES IN PT ASSESSMENT. BED IN LOWEST POSITON, CALL LIGHT WITHIN REACH. WILL CONTINUE TO MONITOR AND REPORT TO ONCOMING RN.
[2019-07-08 05:43] LABS: BASOPHILS ABSOLUTE AUTO 0.07 K/mm3 (0.00-0.23); BASOPHILS PERCENT AUTO 1 % (0-2); EOSINOPHILS ABSOLUTE AUTO 0.21 K/mm3 (0.00-0.68); EOSINOPHILS PERCENT AUTO 3 % (0-6); Hematocrit 39.9 % (33.0-51.0); Hemoglobin 12.9 g/dL (11.5-16.0); IMMATURE GRAN ABSOLUTE AUTO 0.03 K/mm3 (0.00-0.10); IMMATURE GRAN PERCENT AUTO 0 % (0-1); LYMPHOCYTES ABSOLUTE AUTO 2.63 K/mm3 (0.84-5.20); LYMPHOCYTES PERCENT AUTO 32 % (21-46); MONOCYTES ABSOLUTE AUTO 0.77 K/mm3 (0.16-1.47); MONOCYTES PERCENT AUTO 9 % (4-13); Mean Corpuscular HGB 30.1 pg (26.0-34.0); Mean Corpuscular HGB Conc 32.3 g/dL (31.5-36.5); Mean Corpuscular Volume 93 fL (80-100); Mean Platelet Volume 10.8 fL (9.1-12.4); NEUTROPHILS ABSOLUTE AUTO 4.61 K/mm3 (1.96-9.15); NEUTROPHILS PERCENT AUTO 55 % (41-73); Platelet Count 258 K/mm3 (150-400); RDW Coefficient Variation 14.2 % (11.7-14.2); RDW Standard Deviation 48.7 fL (35.1-46.3); Red Blood Cell Count 4.29 M/mm3 (3.80-5.20); White Blood Cell Count 8.32 K/mm3 (4.00-11.30)
[2019-07-08 06:20] LABS: Albumin, Blood 2.6 g/dL (3.4-5.0); Anion Gap 4 mmol/L (6-16); Blood Urea Nitrogen 18 mg/dL (8-24); CO2, Blood 33 mmol/L (21-32); Calcium, Blood 9.1 mg/dL (8.5-10.1); Chloride, Blood 99 mmol/L (98-108); Creatinine, Blood 1.29 mg/dL (0.40-1.00); Glomerular Filtration Rate 43 (60-); Glucose, Blood 100 mg/dL (70-99); Phosphorus, Blood 2.4 mg/dL (2.5-4.9); Potassium, Blood 4.1 mmol/L (3.5-5.5); Sodium, Blood 136 mmol/L (136-145)
--- NOTE | 2019-07-08 13:15 | NUR ---
PT'S MOTHER, PALMER CALL, STATE ABLE TO VERIFY [facility] HOME MEDS w DR RAUSCH HIS FORMER PSYCHIATRIST. ABILIFY 15MG BEDTIME & CITALOPRAM 20MG BEDTIME. SHE STATE WILL CALL AGAIN TOMORROW TO SPEAK w DR MACKENZIE. STATE WILL ALSO ASSIST PT w SHOWER TOMORROW.
--- NOTE | 2019-07-08 16:25 | NUR ---
SUMMARY PT IS A/O X3, PLEASANT AFFECT. UP w SBA, GAIT HAS BEEN STEADY, COATING MACHINE OPERATOR ASSIST HER TO SHOWER THIS AFTERNOON. BLOOD SUGARS HAVE BEEN WNL SO FAR TODAY. DR HDEZ STATE NOT READY FOR D/C TODAY. SHE HAD HIDA SCAN THIS AM. SBP HAS IMPROVED SINCE DR GAN HOME MEDS, 131/40 THIS AFTERNOON. SHE HAS STATED PAIN NECK & L SIDE R/T FALL, HAVE GIVEN TYLENOL & OXYCODONE FOR RELIEF. O2 CONTINUES @ 2L, BIOX 90-95%
[2019-07-09 05:40] LABS: Albumin, Blood 2.4 g/dL (3.4-5.0); Anion Gap 5 mmol/L (6-16); Blood Urea Nitrogen 19 mg/dL (8-24); Bun/Creatinine Ratio 14.1 (12.0-20.0); CO2, Blood 33 mmol/L (21-32); Calcium, Blood 8.6 mg/dL (8.5-10.1); Chloride, Blood 97 mmol/L (98-108); Creatinine, Blood 1.35 mg/dL (0.40-1.00); Glomerular Filtration Rate 40 (60-); Glucose, Blood 154 mg/dL (70-99); Phosphorus, Blood 3.3 mg/dL (2.5-4.9); Potassium, Blood 3.9 mmol/L (3.5-5.5); Sodium, Blood 135 mmol/L (136-145)
--- NOTE | 2019-07-09 06:11 | NUR ---
SHIFT SUMMARY PT HAS RESTED FOR MOST THE NIGHT. SHE HAS FREQUENCY AND USES CALL LIGHT FOR ASSISTANCE TO THE BEDSIDE COMMODE. PT HAS BEEN A/OX4, AND CALLS APPROPRIATELY. MEDICATED FOR CHRONIC NECK PAIN X1. PT BP HAS MUCH IMPROVED IN COMPARISON TO PRIOR DAYS. NOT IN NEED OF PRN HYDRALYZINE THIS SHIFT. NO ACUTE CHANGES IN PT ASSESSMENT. DC PLANNING TO SEE PT TODAY AND HOPEFULLY SHE WILL DISCHARGE ONCE ARRANGEMENTS ARE MADE. BED IN LOWEST POSITION, CALL LIGHT WITHIN REACH. WILL CONTINUE TO MONITOR AND REPORT TO ONCOMING RN.
[2019-07-09] MEDS ORDERED: DOCU100 PO (11:28)
[2019-07-09] MEDS ORDERED: FURO20 PO (11:29)
[2019-07-09] MEDS ORDERED: Vsl#3 Capsule1 EACH PO (11:30)
[2019-07-09] MEDS ORDERED: SENN187 PO (11:31)
[2019-07-09] MEDS ORDERED: LEVO750 PO (11:31)
--- NOTE | 2019-07-09 11:56 | NUR ---
DISCHARGE INSTRUCTIONS WENT OVER WITH PATIENT, PRINTED COPY ALSO GIVEN TO PATIENT. EDUCATIONAL MATERIAL GIVEN REGARDING DM2, HYPOGLYCEMIA, AND COPD. ALL QUESTIONS ANSWERED. IV REMOVED THIS AM DUE TO LEAKING. PATIENT IN ROOM GETTING READY FOR DISCHARGE.
--- NOTE | 2019-07-09 12:01 | NUR ---
PATIENT DISCHARGING HOME AT THIS TIME. AUTO FLEET MAINTENANCE MANAGER ASSISTING PATIENT OUT TO [facility] IN W/C. 1202.
== END 2019-07-09 12:02 | disposition home health service (06) | DRG 637 ==
LOC: ER 16:15 → MEDS 16:16 → ENPENDDIS 07-09 08:41 → MEDS 07-09 12:02
PROVIDERS: Emergency Medicine; Internal Medicine; ADMIT Family Medicine
DX: E11.649 Type 2 diabetes mellitus with hypoglycemia without coma (principal); J96.01 Acute respiratory failure with hypoxia; J18.9 Pneumonia, unspecified organism; E87.1 Hypo-osmolality and hyponatremia; Z79.82 Long term (current) use of aspirin; Z87.891 Personal history of nicotine dependence; J45.909 Unspecified asthma, uncomplicated; K21.9 Gastro-esophageal reflux disease without esophagitis; G92 Toxic encephalopathy; N17.9 Acute kidney failure, unspecified; N18.3 Chronic kidney disease, stage 3 (moderate); K74.60 Unspecified cirrhosis of liver; I12.9 Hypertensive chronic kidney disease with stage 1 through stage 4 chronic kidney disease, or unspecified chronic kidney disease; M10.9 Gout, unspecified; G89.4 Chronic pain syndrome; I77.1 Stricture of artery; T38.3X5A Adverse effect of insulin and oral hypoglycemic [antidiabetic] drugs, initial encounter; Y92.9 Unspecified place or not applicable; F41.8 Other specified anxiety disorders
CPT/HCPCS: 0099U; 36415; 70450; 71046; 74176; 78226; 80048; 80053; 80069; 81001; 82947; 83036; 83690; 83880; 84145; 84443; 85025; 85610; 87086; 93005; 93010; 93306; 94667; 94760; 94761; 96361; 96365; 96366; 96367; 96375; 97163; 97166; 97530; 99285-25; A9270; A9537; C9113; G0378; G0480; J0360; J1940; J1956; J2405; J7030; J7042; J7070

== ENCOUNTER 2019-07-20 15:19 | Inpatient (IN) | payer OTHER ==
[~2019-07-20] VITALS: Ht 167.6 cm; Wt 75.0 kg
[~2019-07-20 15:19] MED LIST changes: -ALLO100 PO; -ASPI81CH PO; -BELSOMRA10 MG PO; -GABA300 PO; -INSULANPEN SC; -Indomethacin25 MG PO; +LEVO750 PO; -LEVSOD50 PO; -OMEPRAZOLE20 MG PO; -ONE DAILY FOR1 EAC3 PO; -PROAIR RESPICL90 MCG INH; -ROXYBOND5 MG PO; +Vsl#3 Capsule1 EACH PO
[2019-07-20 15:55] LABS: BASOPHILS ABSOLUTE AUTO 0.04 K/mm3 (0.00-0.23); BASOPHILS PERCENT AUTO 0 % (0-2); EOSINOPHILS PERCENT AUTO 1 % (0-6); Hematocrit 37.7 % (33.0-51.0); Hemoglobin 12.2 g/dL (11.5-16.0); IMMATURE GRAN ABSOLUTE AUTO 0.06 K/mm3 (0.00-0.10); IMMATURE GRAN PERCENT AUTO 1 % (0-1); LYMPHOCYTES PERCENT AUTO 11 % (21-46); MONOCYTES ABSOLUTE AUTO 1.07 K/mm3 (0.16-1.47); MONOCYTES PERCENT AUTO 10 % (4-13); Mean Corpuscular HGB 30.3 pg (26.0-34.0); Mean Corpuscular HGB Conc 32.4 g/dL (31.5-36.5); Mean Corpuscular Volume 94 fL (80-100); Mean Platelet Volume 10.8 fL (9.1-12.4); NEUTROPHILS ABSOLUTE AUTO 8.63 K/mm3 (1.96-9.15); NEUTROPHILS PERCENT AUTO 78 % (41-73); Platelet Count 244 K/mm3 (150-400); RDW Coefficient Variation 13.6 % (11.7-14.2); RDW Standard Deviation 46.8 fL (35.1-46.3); Red Blood Cell Count 4.03 M/mm3 (3.80-5.20)
[2019-07-20 16:03] LABS: Alanine Aminotransfer (ALT/SGP 14 U/L (12-78); Albumin, Blood 2.9 g/dL (3.4-5.0); Albumin/Globulin Ratio 0.8 (0.8-1.8); Alk Phos 73 U/L (50-136); Anion Gap 6 mmol/L (6-16); Aspartate Aminotrans (AST/SGOT 20 U/L (12-37); Bilirubin, Total 0.7 mg/dL (0.1-1.0); Blood Urea Nitrogen 26 mg/dL (8-24); Bun/Creatinine Ratio 17.8 (12.0-20.0); CO2, Blood 26 mmol/L (21-32); Calcium, Blood 8.6 mg/dL (8.5-10.1); Chloride, Blood 94 mmol/L (98-108); Creatinine, Blood 1.46 mg/dL (0.40-1.00); Globulin, Blood 3.7 g/dL (2.2-4.0); Glomerular Filtration Rate 37 (60-); Glucose, Blood 86 mg/dL (70-99); Sodium, Blood 126 mmol/L (136-145); Total Protein, Blood 6.6 g/dL (6.4-8.2); Troponin I <0.015 ng/mL (0.000-0.040)
[2019-07-20] MEDS ORDERED: ROXICODONE15 MG PO (18:15)
[2019-07-20] MEDS ORDERED: BELSOMRA10 MG PO (18:16)
[2019-07-20] MEDS ORDERED: OMEPRAZOLE20 MG PO (18:17)
[2019-07-20] MEDS ORDERED: GABA300 PO (18:17)
[2019-07-20] MEDS ORDERED: INSULANPEN SC (18:18)
[2019-07-20] MEDS ORDERED: Indomethacin25 MG PO (18:18)
[2019-07-20] MEDS ORDERED: ALBU90OI INH (18:19)
[2019-07-20] MEDS ORDERED: Aspir 8181 MG PO (18:20)
[2019-07-20] MEDS ORDERED: ALLO100 PO (18:20)
[2019-07-20] MEDS ORDERED: HYDHCL25 PO (18:21)
[2019-07-20] MEDS ORDERED: LEVSOD50 PO (18:21)
[2019-07-20] MEDS ORDERED: FURO20 PO (18:22)
[2019-07-20] MEDS ORDERED: ONE DAILY FOR1 EAC3 PO (18:22)
[2019-07-20] MEDS ORDERED: DOCU100 PO (18:22)
[2019-07-20] MEDS ORDERED: LOSA50 PO (18:44)
[2019-07-20] MEDS ORDERED: AMLO10 PO (18:44)
[2019-07-20] MEDS ORDERED: CLON.1 PO ×2 (18:44→18:45)
--- NOTE | 2019-07-21 03:00 | NUR ---
D-DIMER DR PAZ CALLED AND NOTIFIED OF D-DIMER RESULTS. PROVIDER STATED HE WILL LOOK INTO PT'S CHART.
--- NOTE | 2019-07-21 04:32 | NUR ---
SHIFT SUMMARY PT ARRIVED TO FLOOR IN NO DISTRESS. PT WAS HAVING INCREASED SOB WITH MINIMAL EXERTION. PT SLEPT WELL T/O NIGHT. THIS AM PT IS BREATHING LITTLE EASIER. PT HAS A ONGOING ISSUE WITH HER LEFT FOOT. PT STATES SHE MISSED HER PODIATRY APPT RECENTLY. PT IS HAVING PAIN IN LEFT FOOT. THERE IS NOTED SWELLING/ DEFORMITY. PT ABLE TO BEAR WEIGHT EASILY ON LEFT FOOT. PT AWAKE AND BREATHING EASIER. CALL LIGHT IN REACH.
[2019-07-21 08:10] LABS: Hematocrit 39.2 % (33.0-51.0); Mean Corpuscular HGB 30.2 pg (26.0-34.0); Mean Corpuscular HGB Conc 33.2 g/dL (31.5-36.5); Mean Platelet Volume 10.7 fL (9.1-12.4); Platelet Count 245 K/mm3 (150-400); RDW Coefficient Variation 13.7 % (11.7-14.2); RDW Standard Deviation 46.1 fL (35.1-46.3); Red Blood Cell Count 4.31 M/mm3 (3.80-5.20); White Blood Cell Count 9.59 K/mm3 (4.00-11.30)
[2019-07-21 08:14] LABS: Bun/Creatinine Ratio 18.3 (12.0-20.0); Calcium, Blood 8.9 mg/dL (8.5-10.1); Creatinine, Blood 1.31 mg/dL (0.40-1.00); Magnesium, Blood 2.1 mg/dL (1.6-2.4); Phosphorus, Blood 3.6 mg/dL (2.5-4.9); Potassium, Blood 4.7 mmol/L (3.5-5.5)
[2019-07-21 08:21] LABS: Mean Corpuscular Volume 91 fL (80-100)
--- NOTE | 2019-07-21 18:18 | NUR ---
PT IS A/OX3, PLEASANT AND COOPERATIVE, THE PT IS UP WITH MINIMAL ASSIST TO THE BSC, PT REPORTS BREATHING A LITTLE EASIER TODAY, PT STILL BECOMES SOB WITH MINIMAL ACTIVITY, PT IS ON O2 @ 3L/MIN AT THIS TIME, PT WAS MEDICATED FOR PAIN X2 TODAY, DR. RICHARDSON WAS CONSULTED TODAY AND HAS SEEN THE PT, CALL LIGHT IN REACH, WILL CONTINUE TO MONITOR AND ASSESS FOR CHANGES
--- NOTE | 2019-07-22 04:44 | NUR ---
SHIFT SUMMARY NO ACUTE CHANGES TO REPORT THIS SHIFT. PT REMAINS ON 3L O2. RESP ARE E/U AT REST. PT UP WITH MININMAL ASSISTANCE TO THE BSC. MEDICATED FOR CHRONIC PAIN PER EMAR ORDERS. ASSESSMENT UNCHANGED. BED IN LOWEST POSITION, CALL LIGHT WITHIN REACH. WILL CONTINUE TO MONITOR AND REPORT TO ONCOMING RN.
[2019-07-22 05:39] LABS: BASOPHILS ABSOLUTE AUTO 0.07 K/mm3 (0.00-0.23); BASOPHILS PERCENT AUTO 1 % (0-2); EOSINOPHILS ABSOLUTE AUTO 0.38 K/mm3 (0.00-0.68); EOSINOPHILS PERCENT AUTO 6 % (0-6); Hematocrit 37.5 % (33.0-51.0); Hemoglobin 12.3 g/dL (11.5-16.0); IMMATURE GRAN ABSOLUTE AUTO 0.02 K/mm3 (0.00-0.10); IMMATURE GRAN PERCENT AUTO 0 % (0-1); LYMPHOCYTES ABSOLUTE AUTO 2.53 K/mm3 (0.84-5.20); LYMPHOCYTES PERCENT AUTO 38 % (21-46); MONOCYTES ABSOLUTE AUTO 0.93 K/mm3 (0.16-1.47); MONOCYTES PERCENT AUTO 14 % (4-13); Mean Corpuscular HGB 30.1 pg (26.0-34.0); Mean Corpuscular HGB Conc 32.8 g/dL (31.5-36.5); Mean Corpuscular Volume 92 fL (80-100); Mean Platelet Volume 10.7 fL (9.1-12.4); NEUTROPHILS ABSOLUTE AUTO 2.73 K/mm3 (1.96-9.15); NEUTROPHILS PERCENT AUTO 41 % (41-73); Platelet Count 214 K/mm3 (150-400); RDW Coefficient Variation 13.5 % (11.7-14.2); RDW Standard Deviation 45.9 fL (35.1-46.3); Red Blood Cell Count 4.08 M/mm3 (3.80-5.20); White Blood Cell Count 6.66 K/mm3 (4.00-11.30)
[2019-07-22 06:11] LABS: Albumin, Blood 2.5 g/dL (3.4-5.0); Anion Gap 4 mmol/L (6-16); Blood Urea Nitrogen 21 mg/dL (8-24); Bun/Creatinine Ratio 15.9 (12.0-20.0); CO2, Blood 35 mmol/L (21-32); Calcium, Blood 8.6 mg/dL (8.5-10.1); Chloride, Blood 92 mmol/L (98-108); Creatinine, Blood 1.32 mg/dL (0.40-1.00); Glomerular Filtration Rate 42 (60-); Glucose, Blood 148 mg/dL (70-99); Phosphorus, Blood 2.9 mg/dL (2.5-4.9); Potassium, Blood 4.7 mmol/L (3.5-5.5); Sodium, Blood 131 mmol/L (136-145)
--- NOTE | 2019-07-22 16:22 | NUR ---
PT IS A/OX3, PLEASANT AND COOPERATIVE, THE PT IS UP WITH MINIMAL ASSIST, THE PT STILL REPORTS SOME UPPER CHEST PAIN AND WAS MEDICATED FOR PAIN X2 SO FAR TODAY, DR. RICHARDSON WAS IN TO SEE THE PT AND A LEXISCAN WAS ORDERED, THE RESTING PORTION OF THE TEST WAS DONE TODAY, THE STRESS PORTION WILL BE TOMMAROW AROUND 1PM, THE PT APPEARS TO BE BREATHING EASILY AT REST AND HER OXYGEN WAS TITRATED DOWN TO 2L/MIN AT THIS TIME O2 SATS GREATER THAN 90%, PT IS UP IND TO THE BSC, CALL LIGHT IN REACH, WILL CONTINUE TO MONITOR AND ASSESS FOR CHANGES
--- NOTE | 2019-07-23 05:38 | NUR ---
SHIFT SUMMARY NO ACUTE CHANGES. PT HAS RESTED OFF AND ON THIS SHIFT. MEDICATED PER EMAR FOR PAIN WITH EFFECT. PT HAS BEEN AMBULATING TO THE BSC INDEPENDENTLY. PLAN IS FOR SECOND PORTION OF STRESS TEST TODAY THEN NPO AFTER BREAKAST PER DAYSHIFT JIN CRUMP REPORT. ASSESSMENT UNCHANGED. POSSIBLE DC TODAY. BED IN LOWEST POSITION, CALL LIGHT WITHIN REACH. WILL CONTINUE TO MONITOR AND REPORT TO ONCOMING RN.
--- NOTE | 2019-07-23 16:26 | NUR ---
PT IS A/OX3, PLEASANT AND COOPERATIVE, THE PT HAS BEEN CLEARED BY PHYSICAL THERAPY TO GET UP IND IN HER ROOM, THE PT APPEARS TO BE BREATHING EASILY ON O2 @ 2L/MIN AT THIS TIME, THE PT WAS MEDICATED FOR PAIN PER EMAR AND HER REQUEST, THE PT WAS MEDICATED FOR NAUSEA X1, THE PT FINISHED THE LEXISCAN STRESS TEST THIS AFTERNOON, DR. RICHARDSON WAS IN TO SEE THE PT EARLIER TODAY COREG WAS INCREASED TO 25 MG, CALL LIGHT IN REACH WILL CONTINUE TO MONITOR AND ASSESS FOR CHANGES
--- NOTE | 2019-07-24 04:39 | NUR ---
SHIFT SUMMARY- PT. ASLEEP ON/OFF NIGHT. NO APPARENT DISTRESS NOTED. C/O UPPER CHEST PAIN. MEDICATED PER EMAR. PT. STATES ONLY GETS TEMPORARY RELIEF. PT. A&O, INDEP IN ROOM. DENIED ANY FURTHER NEEDS T/O THE SHIFT. PLAN FOR POSS D/C TODAY. CALL LIGHT WITHIN REACH AND SIDE RAILS UP X2. WILL CONT TO MONITOR.
[2019-07-24 05:54] LABS: Albumin, Blood 2.9 g/dL (3.4-5.0); Anion Gap 3 mmol/L (6-16); Blood Urea Nitrogen 13 mg/dL (8-24); Bun/Creatinine Ratio 10.4 (12.0-20.0); CO2, Blood 35 mmol/L (21-32); Calcium, Blood 9.2 mg/dL (8.5-10.1); Chloride, Blood 95 mmol/L (98-108); Creatinine, Blood 1.25 mg/dL (0.40-1.00); Glomerular Filtration Rate 44 (60-); Glucose, Blood 112 mg/dL (70-99); Phosphorus, Blood 3.2 mg/dL (2.5-4.9); Potassium, Blood 4.7 mmol/L (3.5-5.5); Sodium, Blood 133 mmol/L (136-145)
[2019-07-24] MEDS ORDERED: CARV25 PO (15:51)
[2019-07-24] MEDS ORDERED: POLYETHYLENE G500 G1 PO (15:51)
--- NOTE | 2019-07-24 16:43 | NUR ---
PT. DISCHARGED HOME. FRIEND AT ADMITTING WAITING TO PICK HER UP. Madhav GARCIA TOOK PT OUT VIA [facility]. [facility] TO [facility].
== END 2019-07-24 16:38 | disposition home or self-care (01) | DRG 291 ==
LOC: ER 15:19 → MEDS 19:54 → ERHOLD 19:54 → MEDS 21:30
PROVIDERS: Emergency Medicine; Family Medicine; ADMIT Internal Medicine
DX: I13.0 Hypertensive heart and chronic kidney disease with heart failure and stage 1 through stage 4 chronic kidney disease, or unspecified chronic kidney disease (principal); I50.31 Acute diastolic (congestive) heart failure; J96.01 Acute respiratory failure with hypoxia; E87.1 Hypo-osmolality and hyponatremia; E11.22 Type 2 diabetes mellitus with diabetic chronic kidney disease; N18.3 Chronic kidney disease, stage 3 (moderate); K74.60 Unspecified cirrhosis of liver; M10.9 Gout, unspecified; E11.40 Type 2 diabetes mellitus with diabetic neuropathy, unspecified; F41.9 Anxiety disorder, unspecified; F32.9 Major depressive disorder, single episode, unspecified; I42.1 Obstructive hypertrophic cardiomyopathy; J44.9 Chronic obstructive pulmonary disease, unspecified; E03.9 Hypothyroidism, unspecified; G89.4 Chronic pain syndrome; K21.9 Gastro-esophageal reflux disease without esophagitis; I08.3 Combined rheumatic disorders of mitral, aortic and tricuspid valves; E11.649 Type 2 diabetes mellitus with hypoglycemia without coma; I27.20 Pulmonary hypertension, unspecified; G47.00 Insomnia, unspecified; I70.8 Atherosclerosis of other arteries; Z86.711 Personal history of pulmonary embolism; Z79.82 Long term (current) use of aspirin; Z79.4 Long term (current) use of insulin; Z79.899 Other long term (current) drug therapy
CPT/HCPCS: 36415; 71046; 71260; 78452; 80048; 80053; 80069; 82947; 83735; 83880; 84100; 84145; 84484; 85025; 85027; 85379; 93005; 93010; 93017; 94640; 94760; 94761; 96374; 96376; 97110; 97161; 97165; 97535; 99285-25; A9270; A9270-GY; A9500; J0706; J1650; J1940; J2405; J2785; Q9967

== ENCOUNTER → 2019-08-15 | Outpatient (CLI) | payer OTHER ==
[~2019-08-15] MED LIST changes: +ALLO100 PO; +AMLO10 PO; +Aspir 8181 MG PO; +BELSOMRA10 MG PO; +CARV25 PO; +CLON.1 PO; +DOCU100 PO; +GABA300 PO; +HYDHCL25 PO; +INSULANPEN SC; +Indomethacin25 MG PO; +LEVSOD50 PO; +OMEPRAZOLE20 MG PO; +ONE DAILY FOR1 EAC3 PO; +POLYETHYLENE G500 G1 PO; +ROXICODONE15 MG PO
[2019-08-15 14:48] LABS: Albumin, Blood 3.9 g/dL (3.4-5.0); Bun/Creatinine Ratio 15.6 (12.0-20.0); Calcium, Blood 9.9 mg/dL (8.5-10.1); Creatinine, Blood 1.28 mg/dL (0.40-1.00); Phosphorus, Blood 3.7 mg/dL (2.5-4.9); Potassium, Blood 4.4 mmol/L (3.5-5.5)
[2019-08-15 15:35] LABS: Bilirubin, Direct 0.2 mg/dL (0.0-0.3); Bilirubin, Indirect 0.4 mg/dL (0.1-0.7); Bilirubin, Total 0.6 mg/dL (0.1-1.0); Globulin, Blood 3.8 g/dL (2.2-4.0); Total Protein, Blood 7.7 g/dL (6.4-8.2)
== END | disposition home or self-care (01) ==
LOC: LAB SHORT 10:00 → LAB 10:00
PROVIDERS: Internal Medicine Nephrology
DX: N18.3 Chronic kidney disease, stage 3 (moderate) (principal); D63.1 Anemia in chronic kidney disease; R10.9 Unspecified abdominal pain
CPT/HCPCS: 80053; 82150; 82248; 83690; 84100

== ENCOUNTER 2019-09-21 12:23 | Emergency (ER) | payer OTHER ==
[~2019-09-21] VITALS: Ht 167.6 cm; Wt 74.8 kg
[2019-09-21 13:39] LABS: BASOPHILS ABSOLUTE AUTO 0.08 K/mm3 (0.00-0.23); BASOPHILS PERCENT AUTO 1 % (0-2); EOSINOPHILS ABSOLUTE AUTO 0.37 K/mm3 (0.00-0.68); EOSINOPHILS PERCENT AUTO 4 % (0-6); Hematocrit 42.4 % (33.0-51.0); Hemoglobin 13.3 g/dL (11.5-16.0); IMMATURE GRAN ABSOLUTE AUTO 0.03 K/mm3 (0.00-0.10); IMMATURE GRAN PERCENT AUTO 0 % (0-1); LYMPHOCYTES ABSOLUTE AUTO 2.11 K/mm3 (0.84-5.20); LYMPHOCYTES PERCENT AUTO 24 % (21-46); MONOCYTES ABSOLUTE AUTO 0.81 K/mm3 (0.16-1.47); MONOCYTES PERCENT AUTO 9 % (4-13); Mean Corpuscular HGB 29.5 pg (26.0-34.0); Mean Corpuscular HGB Conc 31.4 g/dL (31.5-36.5); Mean Corpuscular Volume 94 fL (80-100); Mean Platelet Volume 10.4 fL (9.1-12.4); NEUTROPHILS ABSOLUTE AUTO 5.32 K/mm3 (1.96-9.15); NEUTROPHILS PERCENT AUTO 61 % (41-73); Platelet Count 223 K/mm3 (150-400); RDW Coefficient Variation 13.7 % (11.7-14.2); RDW Standard Deviation 47.2 fL (35.1-46.3); Red Blood Cell Count 4.51 M/mm3 (3.80-5.20); White Blood Cell Count 8.72 K/mm3 (4.00-11.30)
[2019-09-21 13:59] LABS: Alanine Aminotransfer (ALT/SGP 26 U/L (12-78); Albumin, Blood 3.3 g/dL (3.4-5.0); Albumin/Globulin Ratio 0.8 (0.8-1.8); Alk Phos 91 U/L (50-136); Anion Gap 2 mmol/L (6-16); Aspartate Aminotrans (AST/SGOT 25 U/L (12-37); Bilirubin, Total 0.6 mg/dL (0.1-1.0); Blood Urea Nitrogen 12 mg/dL (8-24); Bun/Creatinine Ratio 7.7 (12.0-20.0); CO2, Blood 33 mmol/L (21-32); Calcium, Blood 9.2 mg/dL (8.5-10.1); Chloride, Blood 104 mmol/L (98-108); Creatinine, Blood 1.55 mg/dL (0.40-1.00); Globulin, Blood 4.1 g/dL (2.2-4.0); Glomerular Filtration Rate 35 (60-); Glucose, Blood 65 mg/dL (70-99); Potassium, Blood 4.5 mmol/L (3.5-5.5); Sodium, Blood 139 mmol/L (136-145); Total Protein, Blood 7.4 g/dL (6.4-8.2); Troponin I <0.015 ng/mL (0.000-0.040)
== END 2019-09-21 17:03 | disposition home or self-care (01) ==
LOC: ER 12:23
PROVIDERS: Emergency Medicine
DX: R06.00 Dyspnea, unspecified (principal); R09.02 Hypoxemia; J44.9 Chronic obstructive pulmonary disease, unspecified; F41.8 Other specified anxiety disorders; K21.9 Gastro-esophageal reflux disease without esophagitis; M10.9 Gout, unspecified; N18.3 Chronic kidney disease, stage 3 (moderate); Z86.711 Personal history of pulmonary embolism; Z87.891 Personal history of nicotine dependence; Z79.4 Long term (current) use of insulin; Z79.899 Other long term (current) drug therapy
CPT/HCPCS: 36415; 80053; 84484; 85025; 93005; 93010; 99285-25

== ENCOUNTER 2019-10-09 19:21 | Inpatient (IN) | payer OTHER ==
[~2019-10-09] VITALS: Ht 167.6 cm; Wt 77.9 kg
[~2019-10-09 19:21] MED LIST changes: -ALLO100 PO; -AMLO10 PO; -Aspir 8181 MG PO; -BELSOMRA10 MG PO; -CARV25 PO; -DOCU100 PO; -GABA300 PO; -HYDHCL25 PO; -INSULANPEN SC; -LEVSOD50 PO; -OMEPRAZOLE20 MG PO; -ROXICODONE15 MG PO
[2019-10-09 19:53] LABS: PCO2 Arterial 51.1 mmHg (35-45); PO2 Arterial 73.6 mmHg (80-100); pH Blood Arterial 7.35 (7.35-7.45)
[2019-10-09 19:59] LABS: BASOPHILS ABSOLUTE AUTO 0.08 K/mm3 (0.00-0.23); BASOPHILS PERCENT AUTO 1 % (0-2); EOSINOPHILS ABSOLUTE AUTO 0.38 K/mm3 (0.00-0.68); EOSINOPHILS PERCENT AUTO 3 % (0-6); Hematocrit 39.7 % (33.0-51.0); Hemoglobin 12.4 g/dL (11.5-16.0); IMMATURE GRAN ABSOLUTE AUTO 0.04 K/mm3 (0.00-0.10); IMMATURE GRAN PERCENT AUTO 0 % (0-1); LYMPHOCYTES ABSOLUTE AUTO 2.39 K/mm3 (0.84-5.20); LYMPHOCYTES PERCENT AUTO 20 % (21-46); MONOCYTES ABSOLUTE AUTO 0.69 K/mm3 (0.16-1.47); MONOCYTES PERCENT AUTO 6 % (4-13); Mean Corpuscular HGB 29.5 pg (26.0-34.0); Mean Corpuscular HGB Conc 31.2 g/dL (31.5-36.5); Mean Corpuscular Volume 94 fL (80-100); Mean Platelet Volume 10.7 fL (9.1-12.4); NEUTROPHILS ABSOLUTE AUTO 8.45 K/mm3 (1.96-9.15); NEUTROPHILS PERCENT AUTO 70 % (41-73); Platelet Count 289 K/mm3 (150-400); RDW Coefficient Variation 13.7 % (11.7-14.2); RDW Standard Deviation 47.8 fL (35.1-46.3); Red Blood Cell Count 4.21 M/mm3 (3.80-5.20); White Blood Cell Count 12.03 K/mm3 (4.00-11.30)
[2019-10-09 20:18] LABS: Source, Urine Catheter
[2019-10-09 20:22] LABS: Appearance, Urine Clear (Clear); Bilirubin, Urine Neg (Neg); Blood, Urine 4+ (Neg); Color, Urine Amber (P-Yellow); Glucose Qualitative, Urine Neg (Neg); Ketones, Urine 1+ (Neg); Leukocyte Esterase, Urine Neg (Neg); Nitrite, Urine Neg (Neg); Protein, Urine 2+ (Neg); Specific Gravity, Urine 1.025 (1.003-1.022); Urobilinogen, Urine NORM (Normal)
[2019-10-09 20:26] LABS: Alanine Aminotransfer (ALT/SGP 46 U/L (12-78); Albumin, Blood 2.9 g/dL (3.4-5.0); Albumin/Globulin Ratio 0.8 (0.8-1.8); Alk Phos 90 U/L (50-136); Anion Gap 4 mmol/L (6-16); Aspartate Aminotrans (AST/SGOT 78 U/L (12-37); Bilirubin, Total 0.5 mg/dL (0.1-1.0); Blood Urea Nitrogen 21 mg/dL (8-24); Bun/Creatinine Ratio 11.1 (12.0-20.0); CO2, Blood 28 mmol/L (21-32); Calcium, Blood 8.6 mg/dL (8.5-10.1); Chloride, Blood 107 mmol/L (98-108); Creatinine, Blood 1.89 mg/dL (0.40-1.00); Ethanol (Alcohol), Blood, Med <3 mg/dL; Free Thyroxine 1.07 ng/dL (0.70-1.60); Globulin, Blood 3.7 g/dL (2.2-4.0); Glomerular Filtration Rate 27 (60-); Glucose, Blood 117 mg/dL (70-99); Potassium, Blood 4.7 mmol/L (3.5-5.5); Sodium, Blood 139 mmol/L (136-145); Total Protein, Blood 6.6 g/dL (6.4-8.2); Troponin I 0.134 ng/mL (0.000-0.040)
[2019-10-09 20:27] LABS: White Blood Cells, Urine 0-2 /hpf (0-5)
[2019-10-09 20:28] LABS: Amorphous Mod (0-Heavy); Bacteria Few /hpf; Squamous Epithelial Cells Rare /hpf (Few)
[2019-10-09 20:29] LABS: Triiodothyronine, Free 2.82 pg/mL (2.18-3.98)
[2019-10-09 20:49] LABS: U Amphetamine Screen Not Detected; U Barbituate Screen Not Detected; U Benzodiazapine Screen Not Detected; U Buprenorphine Screen Not Detected; U Cannabinoids Screen DETECTED; U Cocaine Screen Not Detected; U Methadone Screen Not Detected; U Methamphetamine Screen Not Detected; U Opiates Screen Not Detected; U Oxycodone Screen DETECTED; U Phencyclidine Screen Not Detected; U Propoxyphene Screen Not Detected
[2019-10-09 21:08] LABS: International Normalized Ratio 1.01; Prothrombin Time Results 10.8 Sec (9.7-11.5)
[2019-10-09] MEDS ORDERED: INSULANPEN SC (21:47)
[2019-10-09] MEDS ORDERED: OMEPRAZOLE20 MG PO (21:48)
[2019-10-09] MEDS ORDERED: ALBU90OI INH (21:48)
[2019-10-09] MEDS ORDERED: Aspir 8181 MG PO (21:48)
[2019-10-09] MEDS ORDERED: EUTHYROX50 MCG PO (21:48)
[2019-10-09] MEDS ORDERED: BELSOMRA10 MG PO (21:49)
[2019-10-09] MEDS ORDERED: GABA300 PO (21:49)
[2019-10-09] MEDS ORDERED: ROXICODONE15 MG PO (21:50)
[2019-10-09] MEDS ORDERED: AMLODIPINE BES2.5 MG PO (21:51)
[2019-10-09] MEDS ORDERED: DOCU100 PO (21:52)
[2019-10-09] MEDS ORDERED: LOSA50 PO (21:52)
[2019-10-09] MEDS ORDERED: ALLO100 PO (21:52)
[2019-10-09] MEDS ORDERED: FURO40 PO (21:53)
[2019-10-09] MEDS ORDERED: CARV25 PO (21:55)
[2019-10-09] MEDS ORDERED: HYDHCL25 PO (21:55)
[2019-10-09] MEDS ORDERED: Klonopin0.5 MG PO (21:59)
[2019-10-09] MEDS ORDERED: SENN187 PO (21:59)
[2019-10-09] MEDS ORDERED: ALOCRIL LEFTEYE (22:00)
--- NOTE | 2019-10-10 01:05 | NUR ---
CALLED [facility] TO REPORT PATIENT'S REQUEST FOR OXYCODONE AT BEDTIME. NO NEW ORDERS RECIEVED.
--- NOTE | 2019-10-10 01:59 | NUR ---
ASSUMED CARE OF PATIENT AT APPROXIMATELY 0020 FROM ER. PATIENT ARRIVED TO UNIT VIA STRETCHER; TRANSFER VIA MAX ASSIST AND SLIDE SHEET FROM ED TO PCU STRETCHER. PATIENT ALERT AND ORIENTED TO SELF, , DATE AND LOCATION. CONFUSED AT TIMES; MAKES ODD STATEMENTS. IRRITABLE UPON ARRIVAL TO UNIT. PATIENT DENIES PAIN, NUMBNESS, TINGLING, DIZZINESS OR NAUSEA. NSR ON TELE; HEPARIN GTT; OXYGEN SATURATION ABOVE 90% ON 3LPM VIA NC (BASELINE). [address] DRAINING URINE. PATIENT CURRENTLY RESTING IN BED; CALL LIGHT IN REACH; BED IN LOWEST POSISTION; BED ALARM ON; WILL CONTINUE TO MONITOR AND ASSESS UNTIL END OF SHIFT.
[2019-10-10 05:44] LABS: BASOPHILS ABSOLUTE AUTO 0.07 K/mm3 (0.00-0.23); BASOPHILS PERCENT AUTO 1 % (0-2); EOSINOPHILS ABSOLUTE AUTO 0.36 K/mm3 (0.00-0.68); EOSINOPHILS PERCENT AUTO 3 % (0-6); Hematocrit 37.1 % (33.0-51.0); Hemoglobin 11.6 g/dL (11.5-16.0); IMMATURE GRAN ABSOLUTE AUTO 0.03 K/mm3 (0.00-0.10); IMMATURE GRAN PERCENT AUTO 0 % (0-1); LYMPHOCYTES ABSOLUTE AUTO 4.57 K/mm3 (0.84-5.20); LYMPHOCYTES PERCENT AUTO 41 % (21-46); MONOCYTES ABSOLUTE AUTO 1.25 K/mm3 (0.16-1.47); MONOCYTES PERCENT AUTO 11 % (4-13); Mean Corpuscular HGB 29.7 pg (26.0-34.0); Mean Corpuscular HGB Conc 31.3 g/dL (31.5-36.5); Mean Corpuscular Volume 95 fL (80-100); Mean Platelet Volume 10.9 fL (9.1-12.4); NEUTROPHILS ABSOLUTE AUTO 4.97 K/mm3 (1.96-9.15); NEUTROPHILS PERCENT AUTO 44 % (41-73); Platelet Count 217 K/mm3 (150-400); RDW Coefficient Variation 13.7 % (11.7-14.2); RDW Standard Deviation 47.8 fL (35.1-46.3); Red Blood Cell Count 3.91 M/mm3 (3.80-5.20); White Blood Cell Count 11.25 K/mm3 (4.00-11.30)
[2019-10-10 05:58] LABS: Albumin, Blood 2.6 g/dL (3.4-5.0); Albumin/Globulin Ratio 0.8 (0.8-1.8); Bilirubin, Total 0.4 mg/dL (0.1-1.0); Bun/Creatinine Ratio 14.7 (12.0-20.0); Calcium, Blood 8.3 mg/dL (8.5-10.1); Creatinine, Blood 1.84 mg/dL (0.40-1.00); Globulin, Blood 3.4 g/dL (2.2-4.0); Potassium, Blood 4.5 mmol/L (3.5-5.5)
--- NOTE | 2019-10-10 06:34 | NUR ---
CALLED DR. PORRAS REGARDING CRITICALLY HIGH TROPONIN OF 0.899 THIS AM. NO CP/PRESSURE. PATIENT HAD HEPARIN INFUSING SINCE ADMIT TO UNIT. DR. PORRAS SAID DAYSHIFT HOSPITALIST TO CALL CARDIOLOGY CONSULT IN. NO OTHER ACUTE CHANGES.
--- NOTE | 2019-10-10 09:49 | NUR ---
PT IS A/O X4, ANSWERING QUESTIONS APPROPRIATELY IN FULL SENTENCES. PT REPORTS THAT SHE DOES NOT RECALL LAST NOC'S EVENTS. STS THAT SHE TOOK HER OXYCODONE AND "A LIQUID I GOT FROM THE POT SHOP TO CALM ME DOWN" STS THAT IS THE LAST THING SHE RECALLS. PT IS UPDATED THAT SHE DID HAVE MARIJUANA IN HER URINE DRUG SCREEN PT STS SHE IS IS VERY EMBARASSED THAT SHE WAS POSITIVE.
--- NOTE | 2019-10-10 11:44 | NUR ---
Spiritual care visit conducted. Patient is lying in bed and alert. Patient is confused at times but also clear at others. PAtient tells me about her family unit complications, about her two sons and about the of her daughter on Mother's Day. Patient gets very tearful at times. Patient tells me about her spiritual journey and about her medical issues. I listen empathically, hear confession, and provide grief/emotional support, pastoral debt counselor and prayer. Patient responds well and shows signs of catharsis and improved peace. I will continue to remain available to patient and family.
--- NOTE | 2019-10-10 18:37 | NUR ---
SHIFT NOTE PT RESTING WELL IN BED T/O THE SHIFT. PT IS A/O X3, ANSWERING QUESTIONS APPROPRIATELY IN FULL SENTENCES. PT STS THAT SHE WAS USING MARIJUANA DROPS FROM THE "POT SHOP" LAST NOC WITH HER OXYCODONE. VSS. PT WAS NOT PRESCRIBED NARCOTICS TODAY FOR PAIN TODAY R/T HER AMS LAST NOC, PT HAS BEEN MEDICATED WITH TYLENOL FOR PAIN. PT HAS BEEN UP T BEDSIDE COMMODE WITH 1 PERSON STANDBY BUT IS STABLE ON FEET.
--- NOTE | 2019-10-10 19:50 | NUR ---
ASSUMED CARE Report from JIN Monique. Assumed care at approx 1900. VSS. Pt alert and oriented, conversing appropriately. Able to express needs with call light. Breathing even and unlabored, denies SOB or difficulty breathing. heprin gtt infusing and rate verified with offgoing RN. pt denies chest pain or pressure. See shift assessment for detailed systems assessment. Bautista catheter in place and draining wnl.
[2019-10-11 03:33] LABS: Bun/Creatinine Ratio 17.3 (12.0-20.0); Calcium, Blood 8.6 mg/dL (8.5-10.1); Creatinine, Blood 1.39 mg/dL (0.40-1.00); Potassium, Blood 4.5 mmol/L (3.5-5.5)
--- NOTE | 2019-10-11 05:23 | NUR ---
Shift Summary No acute changes overnight. mentation intact all night, no changes, alert and oriented, calling appropriately, conversing appropriately. VSS. expressing needs with call light. Ambulates to bathroom wtih minimal assistance. Recalling information. Pt sleeping throughout majority of shift. Hard of hearing. Pt denies chest pain or pressure. heprin gtt infusing into RA; rate changed x1 this shift and verified with two RN verification; current rate is 14u/kg/hr 21ml/hr. next aptt is at 1000. Plan for either status change or possible D/C home pending Provider order. Will continue to monitor.
--- NOTE | 2019-10-11 15:28 | NUR ---
Spiritual care visit conducted. I provide companionship, pastoral care and blessing for health and safe travels. Patient voices appreciation for the time and care.
--- NOTE | 2019-10-11 15:40 | NUR ---
PT IVs D/C X2 INTACT. PT EDUCATED ABOUT D/C, EXPRESSED UNDERSTANDING OF DC TEACHING AND MEDICATOINS. PT WAS TAKEN OUT OF [facility]. ALL BELONGINGS RETURNED TO PT. PRESSURE DRESSING APPLIED TO IV SITES, PT EDUCATED TO LEAVE DRESSING IN PLACE X20 MIN TO ENSURE BLEEDING STOPPED.
== END 2019-10-11 15:40 | disposition home or self-care (01) | DRG 917 ==
LOC: ER 19:21 → PCU 19:22
PROVIDERS: Emergency Medicine; Internal Medicine; Nurse Practitioner Acute Care; ADMIT Family Medicine
DX: T40.7X1A Poisoning by cannabis (derivatives), accidental (unintentional), initial encounter (principal); G92 Toxic encephalopathy; J96.02 Acute respiratory failure with hypercapnia; J96.21 Acute and chronic respiratory failure with hypoxia; I21.A1 Myocardial infarction type 2; N17.9 Acute kidney failure, unspecified; I42.1 Obstructive hypertrophic cardiomyopathy; N18.4 Chronic kidney disease, stage 4 (severe); F60.9 Personality disorder, unspecified; J44.9 Chronic obstructive pulmonary disease, unspecified; E11.22 Type 2 diabetes mellitus with diabetic chronic kidney disease; I05.0 Rheumatic mitral stenosis; I70.8 Atherosclerosis of other arteries; E03.9 Hypothyroidism, unspecified; G89.4 Chronic pain syndrome; M10.9 Gout, unspecified; K74.60 Unspecified cirrhosis of liver; F41.9 Anxiety disorder, unspecified; F32.9 Major depressive disorder, single episode, unspecified; K21.9 Gastro-esophageal reflux disease without esophagitis; E86.0 Dehydration; J84.10 Pulmonary fibrosis, unspecified; Z87.891 Personal history of nicotine dependence; Z99.81 Dependence on supplemental oxygen; Z79.82 Long term (current) use of aspirin; Z86.711 Personal history of pulmonary embolism; Z79.4 Long term (current) use of insulin; Z79.891 Long term (current) use of opiate analgesic; Z79.899 Other long term (current) drug therapy
CPT/HCPCS: 36415; 36600; 51702; 70450; 71045; 80048; 80053; 81001; 82607; 82803; 82947; 83880; 84439; 84443; 84481; 84484; 85025; 85610; 85730; 86592; 93005; 93010; 94640; 96374-59; 99285-25; A9270; A9270-GY; G0378; G0480; J1644; J2310

== ENCOUNTER 2020-07-05 08:19 | Emergency (ER) | payer OTHER ==
[~2020-07-05] VITALS: Ht 167.6 cm; Wt 74.8 kg
[~2020-07-05 08:19] MED LIST changes: +ALLO100 PO; +ALOCRIL LEFTEYE; +BELSOMRA10 MG PO; +DOCU100 PO; +EUTHYROX50 MCG PO; +FURO40 PO; +GABA300 PO; +HYDHCL25 PO; +OMEPRAZOLE20 MG PO; +ROXICODONE15 MG PO
[2020-07-06] MEDS ORDERED: ALBU90OI INH (17:06)
[2020-07-06] MEDS ORDERED: HYDHCL25 PO (17:07)
[2020-07-06] MEDS ORDERED: NEURONTIN300 MG PO (17:08)
[2020-07-06] MEDS ORDERED: ZOFRAN4 MG PO (17:08)
[2020-07-06] MEDS ORDERED: AMLODIPINE BES2.5 MG PO (17:08)
[2020-07-06] MEDS ORDERED: INSULANPEN SC (17:09)
[2020-07-06] MEDS ORDERED: CARV25 PO (17:09)
[2020-07-06] MEDS ORDERED: Klonopin0.5 MG PO (17:10)
[2020-07-06] MEDS ORDERED: EFFEXOR XR37.5 MG PO (17:10)
[2020-07-06] MEDS ORDERED: PANTOPRAZOLE SO40 M2 PO (17:11)
[2020-07-06] MEDS ORDERED: LOSA50 PO (17:11)
[2020-07-06] MEDS ORDERED: Aspir 8181 MG PO (17:13)
== END 2020-07-05 11:03 | disposition home or self-care (01) ==
LOC: ER 08:19
DX: S90.02XA Contusion of left ankle, initial encounter (principal); S00.83XA Contusion of other part of head, initial encounter; E11.649 Type 2 diabetes mellitus with hypoglycemia without coma; H11.31 Conjunctival hemorrhage, right eye; J44.9 Chronic obstructive pulmonary disease, unspecified; E03.9 Hypothyroidism, unspecified; K21.9 Gastro-esophageal reflux disease without esophagitis; I10 Essential (primary) hypertension; N18.30 Chronic kidney disease, stage 3 unspecified; Z79.4 Long term (current) use of insulin; Z79.899 Other long term (current) drug therapy; Z79.82 Long term (current) use of aspirin; Z87.891 Personal history of nicotine dependence; W18.30XA Fall on same level, unspecified, initial encounter
CPT/HCPCS: 70450; 72125; 73610; 82947; 99284-25

== ENCOUNTER 2020-07-06 16:08 | Inpatient (IN) | payer OTHER ==
[~2020-07-06] VITALS: Ht 167.6 cm; Wt 77.6 kg
[2020-07-06 16:57] LABS: PCO2 Arterial 48.6 mmHg (35-45); PO2 Arterial 220 mmHg (80-100); pH Blood Arterial 7.37 (7.35-7.45)
[2020-07-06 17:05] LABS: Source, Urine Catheter
[2020-07-06] MEDS ORDERED: ALBU90OI INH (17:06)
[2020-07-06] MEDS ORDERED: HYDHCL25 PO (17:07)
[2020-07-06] MEDS ORDERED: ZOFRAN4 MG PO (17:08)
[2020-07-06] MEDS ORDERED: NEURONTIN300 MG PO (17:08)
[2020-07-06] MEDS ORDERED: AMLODIPINE BES2.5 MG PO (17:08)
[2020-07-06] MEDS ORDERED: INSULANPEN SC (17:09)
[2020-07-06] MEDS ORDERED: CARV25 PO (17:09)
[2020-07-06] MEDS ORDERED: EFFEXOR XR37.5 MG PO (17:10)
[2020-07-06] MEDS ORDERED: Klonopin0.5 MG PO (17:10)
[2020-07-06 17:11] LABS: BASOPHILS ABSOLUTE AUTO 0.09 K/mm3 (0.00-0.23); BASOPHILS PERCENT AUTO 1 % (0-2); EOSINOPHILS ABSOLUTE AUTO 0.01 K/mm3 (0.00-0.68); EOSINOPHILS PERCENT AUTO 0 % (0-6); Hematocrit 47.4 % (33.0-51.0); Hemoglobin 14.3 g/dL (11.5-16.0); IMMATURE GRAN ABSOLUTE AUTO 0.15 K/mm3 (0.00-0.10); IMMATURE GRAN PERCENT AUTO 1 % (0-1); LYMPHOCYTES ABSOLUTE AUTO 3.16 K/mm3 (0.84-5.20); LYMPHOCYTES PERCENT AUTO 17 % (21-46); MONOCYTES ABSOLUTE AUTO 0.65 K/mm3 (0.16-1.47); MONOCYTES PERCENT AUTO 4 % (4-13); Mean Corpuscular HGB 28.9 pg (26.0-34.0); Mean Corpuscular HGB Conc 30.2 g/dL (31.5-36.5); Mean Corpuscular Volume 96 fL (80-100); Mean Platelet Volume 10.3 fL (9.1-12.4); NEUTROPHILS ABSOLUTE AUTO 14.45 K/mm3 (1.96-9.15); NEUTROPHILS PERCENT AUTO 78 % (41-73); Platelet Count 341 K/mm3 (150-400); RDW Coefficient Variation 14.1 % (11.7-14.2); RDW Standard Deviation 49.8 fL (35.1-46.3); Red Blood Cell Count 4.94 M/mm3 (3.80-5.20); White Blood Cell Count 18.51 K/mm3 (4.00-11.30)
[2020-07-06] MEDS ORDERED: LOSA50 PO (17:11)
[2020-07-06] MEDS ORDERED: PANTOPRAZOLE SO40 M2 PO (17:11)
[2020-07-06] MEDS ORDERED: Aspir 8181 MG PO (17:13)
[2020-07-06 17:17] LABS: Appearance, Urine Hazy (Clear); Bilirubin, Urine Neg (Neg); Blood, Urine 4+ (Neg); Color, Urine Yellow (P-Yellow); Glucose Qualitative, Urine Neg (Neg); Ketones, Urine Neg (Neg); Leukocyte Esterase, Urine Neg (Neg); Nitrite, Urine Pos (Neg); Protein, Urine 4+ (Neg); Specific Gravity, Urine 1.015 (1.003-1.022); Urobilinogen, Urine NORM (Normal)
[2020-07-06 17:27] LABS: Prolactin 7.4 ng/mL (2.74-19.64)
[2020-07-06 17:31] LABS: Troponin I 0.073 ng/mL (0.000-0.040)
[2020-07-06 17:35] LABS: Bacteria Many /hpf; Squamous Epithelial Cells Not Seen /hpf (Few)
[2020-07-06 17:44] LABS: Albumin, Blood 3.3 g/dL (3.4-5.0); Albumin/Globulin Ratio 0.7 (0.8-1.8); Bilirubin, Total 0.7 mg/dL (0.1-1.0); Bun/Creatinine Ratio 15.4 (12.0-20.0); Creatinine, Blood 1.43 mg/dL (0.40-1.00); Globulin, Blood 4.7 g/dL (2.2-4.0)
[2020-07-06 17:45] LABS: Potassium, Blood 6.3 mmol/L (3.5-5.5)
[2020-07-06 17:56] LABS: Influenza A, PCR Negative (NEGATIVE); Influenza B, PCR Negative (NEGATIVE); Resp Syncytial Virus, PCR Negative (NEGATIVE); SARS-Cov-2 (COVID-19) PCR, MMC Negative (NEGATIVE)
[2020-07-06 18:00] LABS: Creatine Kinase MB 1.7 ng/mL (0.0-3.6); Creatine Kinase MB Index 0.7 (0.0-4.0)
--- NOTE | 2020-07-06 19:00 | NUR ---
PT ARRIVED TO ICU 9 AT 1850. INTUBATED AND SEDATED WITH PROPOFOL AT 30MCG. AC 16, TV 400, PEEP 5, FIO2 45%. REPORTING TO DIESEL BUS MECHANIC.
--- NOTE | 2020-07-06 19:30 | NUR ---
ASSUMED PT CARE BEDSIDE REPORT FROM CHRIS RN [id number]. ASSUMED PT CARE. PT CAME TO ICU AT 1850. DETAILS SLIM. PT INTUBATED AND SEDATED. RESP CLEAR TO UPPER, DIMINISHED TO LOWER. VENT SETTINGS AC16/400/5/40, SATS >92%. PROP INFUSING AT 30MCG/KG/MIN TO 20G TO RIGHT AC. SITE WNL. PT ALSO HAS 20G TO RIGHT HAND, EMS START, DRESSING CHANGED, SITE WNL. PT HAS KHAN DRAINING HAYDEE COLORED URINE. CLEAN ATTENDS IN PLACE. BILATERAL SOFT WRIST RESTRAINTS SECURE. OG IN PLACE AND SECURE, PLACED TO LIS, DRAINAGE TO TUBE CLEARISH GREEN. ABD SOFT. SKIN INTACT. MULT BRUISES NOTED. SEE FULL ADMIT ASSESSMENT.
[2020-07-06 20:45] LABS: U Amphetamine Screen Not Detected; U Barbituate Screen Not Detected; U Benzodiazapine Screen Not Detected; U Buprenorphine Screen Not Detected; U Cannabinoids Screen Not Detected; U Cocaine Screen Not Detected; U Methadone Screen Not Detected; U Methamphetamine Screen Not Detected; U Opiates Screen Not Detected; U Oxycodone Screen DETECTED; U Phencyclidine Screen Not Detected; U Propoxyphene Screen Not Detected
[2020-07-07 04:29] LABS: BASOPHILS ABSOLUTE AUTO 0.03 K/mm3 (0.00-0.23); BASOPHILS PERCENT AUTO 0 % (0-2); EOSINOPHILS ABSOLUTE AUTO 0.02 K/mm3 (0.00-0.68); EOSINOPHILS PERCENT AUTO 0 % (0-6); Hematocrit 43.7 % (33.0-51.0); Hemoglobin 13.8 g/dL (11.5-16.0); IMMATURE GRAN ABSOLUTE AUTO 0.09 K/mm3 (0.00-0.10); IMMATURE GRAN PERCENT AUTO 1 % (0-1); LYMPHOCYTES ABSOLUTE AUTO 2.36 K/mm3 (0.84-5.20); LYMPHOCYTES PERCENT AUTO 15 % (21-46); MONOCYTES ABSOLUTE AUTO 1.51 K/mm3 (0.16-1.47); MONOCYTES PERCENT AUTO 10 % (4-13); Mean Corpuscular HGB 29.4 pg (26.0-34.0); Mean Corpuscular HGB Conc 31.6 g/dL (31.5-36.5); Mean Corpuscular Volume 93 fL (80-100); NEUTROPHILS ABSOLUTE AUTO 11.49 K/mm3 (1.96-9.15); NEUTROPHILS PERCENT AUTO 74 % (41-73); RDW Coefficient Variation 13.7 % (11.7-14.2); RDW Standard Deviation 46.8 fL (35.1-46.3)
[2020-07-07 04:37] LABS: Platelet Count 200 K/mm3 (150-400)
[2020-07-07 06:15] LABS: Alanine Aminotransfer (ALT/SGP 22 U/L (12-78); Albumin, Blood 2.8 g/dL (3.4-5.0); Albumin/Globulin Ratio 0.6 (0.8-1.8); Alk Phos 73 U/L (50-136); Anion Gap 8 mmol/L (6-16); Aspartate Aminotrans (AST/SGOT 52 U/L (12-37); Bilirubin, Total 0.9 mg/dL (0.1-1.0); Blood Urea Nitrogen 25 mg/dL (8-24); Bun/Creatinine Ratio 17.7 (12.0-20.0); CO2, Blood 25 mmol/L (21-32); Calcium, Blood 9.2 mg/dL (8.5-10.1); Chloride, Blood 106 mmol/L (98-108); Creatinine, Blood 1.41 mg/dL (0.40-1.00); Globulin, Blood 4.5 g/dL (2.2-4.0); Glomerular Filtration Rate 38 (60-); Glucose, Blood 95 mg/dL (70-99); Phosphorus, Blood 3.2 mg/dL (2.5-4.9); Potassium, Blood 4.5 mmol/L (3.5-5.5); Sodium, Blood 139 mmol/L (136-145); Total Protein, Blood 7.3 g/dL (6.4-8.2)
--- NOTE | 2020-07-07 06:27 | NUR ---
SHIFT SUMMARY PT REMAINS INTUBATED AND RESEDATED DUE TO NOT TOLERATING VENT. DURING THIS MORNINGS SBT AND SED VAC PT WAS NOT RESPONSIVE, NOT FOLLOWING DIRECTIONS, NOT REALLY RESPONSIVE TO PAINFUL STIMULI. PT HAS NO SPONTANEOUS MOVEMENT. APNEAIC WHEN VENT SWITCHED TO SPONTANEOUS. PT HAS SL 20G TO RIGHT HAND, SITE WNL, DRESSING C/D/I. PT HAS 20G TO RIGHT AC WITH D51/2NS INF @100ML/HR, SITE WNL, DRESSING C/D/I. PT HAS 20G TO LEFT FA WITH PROPOFOL INF @25MCG/KG/MIN AND NS INF @10ML/HR. SITE WNL, DRESSING C/D/I. PT INTERMITTENTLY FEBRILE (NOT CURRENTLY). PT HAD 2 EPISODES OF HYPOGLYCEMIA, FIRST EPISODE WAS CORRECTED WITH AN AMP OF D50 (CBG WENT FROM 37 TO 122). SECOND EPISODE IVF (D51/2NS) STARTED, (CBG WENT FROM 61 TO 85). SKIN PALE AND OFTEN CLAMMY. MULT STAGES OF BRUISING TO MULT AREAS. BILATERAL SOFT RESTRAINTS SECURE. PT HAS KHAN DRAINING HAYDEE COLORED URINE. ATTENDS CLEAN AND DRY. OG TO LIS, SECRETIONS NOW DARK GREENISH BROWN. ABD SOFT. SBP 123. HR 70 SR. SATS >92% ON AC /11/02. WILL REPORT TO ONCOMING RN.
--- NOTE | 2020-07-07 07:45 | NUR ---
ASSUMED CARE BEDSIDE REPORT FROM SANIYA ABDI AT 0700. PT INTUBATED AND SEDATED. VENT SETTINGS AC 16/400/5/30%. PROPOFOL GTT 25 MCG/KG/MIN. PT RESPONSIVE TO PAINFUL STIMULI. DOES NOT FOLLOW COMMANDS. OPENS EYES SPONTANEOUSLY. DOES NOT TRACK STAFF. NO COUGH/GAG/SWALLOW REFLEX NOTED AT THIS TIME. LUNGS DIMINISHED IN BASES. SCANT SECRETIONS THROUGH ETT. 8.0, 24 AT GUMS. PT P/W/D. BP STABLE. NSR c PVC'S ON MONITOR, RATE 80'S. ABD ROUND, SOFT, NON TENDER. BT X 4. OGT TO LIS. DARK BROWN EMESIS IN CANISTER. KHAN PATENT, DRAINING YELLOW/GREEN URINE TO GRAVITY. SWELLING AND ECCHYMOSIS NOTED TO LEFT ANKLE. D5 1/2 NS INFUSING AT 100 ML/HR. PIV X3. WILL CONTINUE TO MONITOR.
--- NOTE | 2020-07-07 09:33 | NUR ---
DR GONSALES ROUNDS PT APPEARS TO BE CHEWING ON ETT, MOVING BOTTOM JAW UP AND DOWN. NYSTAGMUS PRESENT. PT NON RESPONSIVE TO PAINFUL STIMULI. PROPOFOL PLACED ON STANDBY. MEDICATED c ATIVAN 2 MG IVP FOR POSSIBLE SEIZURE. PT THEN RESPONSIVE TO PAINFUL STIMULI. ATIVAN [address] GONSALES. PROPOFOL RESTARTED AT 25 MCG/KG/MIN. ECG ORDERED.
--- NOTE | 2020-07-07 16:20 | NUR ---
Per admit trigger, I attempted to meet with Shilpi about ACP. She is on mechanical ventilation and sedated. No family present. Information packet left on bedside table.
--- NOTE | 2020-07-07 17:20 | NUR ---
SHIFT SUMMARY PT REMAINS INTUBATED AND SEDATED. VENT SETTINGS AC 16/400/5/30%. PROPOFOL GTT 25 MCG/KG/MIN. PT WITHDRAWS LEFT LEG c PAINFUL STIMULATION. NO OTHER RESPONSE. SEDATION VACATION HELD PER DR GONSALES D/T POSSIBLE SEIZURE ACTIVITY. AWAITING EEG. LUNGS CLEAR. SCANT SECRETIONS THROUGH ETT. TUBE FEEDS STARTED THIS SHIFT, VHP AT 25 ML/HR c GOAL OF 40 ML/HR c 30 ML FLUSHES q4 HR. KHAN PATENT, DRAINING GREEN/YELLOW URINE TO GRAVITY. VSS. WILL CONTINUE TO MONITOR UNTIL REPORT TO ONCOMING NURSE.
--- NOTE | 2020-07-07 19:30 | NUR ---
ASSUMED PT CARE BEDSIDE REPORT WITH ANA ABDI AT 1905, ASSUMED PT CARE. PT REMAINS INTUBATED AND SEDATED. VENT SETTINGS AC 16/400/5/30, SATS >92%. LUNG SOUNDS CLEAR TO UPPER LAL AND CLEAR BUT DIMINISHED TO BASES. SMALL AMOUNT OF THICK YELLOW SECRETIONS TO SUCTION CATHETER. PT HAS OG TUBE WITH CONT FEEDS (VHP @25ML/HR). ABD SOFT, BOWEL SOUNDS HYPOACTIVE. KHAN PATENT AND DRAINING. BILATERAL SOFT WRIST RESTRAINTS SECURE. PLAN FOR EEG THIS EVENING. SEE FULL SHIFT ASSESSMENT.
[2020-07-08 04:03] LABS: BASOPHILS ABSOLUTE AUTO 0.04 K/mm3 (0.00-0.23); BASOPHILS PERCENT AUTO 0 % (0-2); EOSINOPHILS PERCENT AUTO 0 % (0-6); Hematocrit 39.8 % (33.0-51.0); Hemoglobin 12.7 g/dL (11.5-16.0); IMMATURE GRAN ABSOLUTE AUTO 0.11 K/mm3 (0.00-0.10); IMMATURE GRAN PERCENT AUTO 1 % (0-1); LYMPHOCYTES ABSOLUTE AUTO 2.03 K/mm3 (0.84-5.20); LYMPHOCYTES PERCENT AUTO 10 % (21-46); MONOCYTES ABSOLUTE AUTO 1.63 K/mm3 (0.16-1.47); MONOCYTES PERCENT AUTO 8 % (4-13); Mean Corpuscular HGB 29.5 pg (26.0-34.0); Mean Corpuscular HGB Conc 31.9 g/dL (31.5-36.5); Mean Corpuscular Volume 93 fL (80-100); Mean Platelet Volume 11.2 fL (9.1-12.4); NEUTROPHILS ABSOLUTE AUTO 16.96 K/mm3 (1.96-9.15); NEUTROPHILS PERCENT AUTO 82 % (41-73); Platelet Count 176 K/mm3 (150-400); RDW Coefficient Variation 13.5 % (11.7-14.2); RDW Standard Deviation 46.2 fL (35.1-46.3); White Blood Cell Count 20.77 K/mm3 (4.00-11.30)
[2020-07-08 04:23] LABS: Albumin, Blood 2.3 g/dL (3.4-5.0); Albumin/Globulin Ratio 0.6 (0.8-1.8); Bilirubin, Total 0.7 mg/dL (0.1-1.0); Bun/Creatinine Ratio 20.1 (12.0-20.0); Calcium, Blood 8.2 mg/dL (8.5-10.1); Creatinine, Blood 1.39 mg/dL (0.40-1.00); Globulin, Blood 3.8 g/dL (2.2-4.0); Magnesium, Blood 1.9 mg/dL (1.6-2.4); Phosphorus, Blood 2.9 mg/dL (2.5-4.9); Potassium, Blood 4.1 mmol/L (3.5-5.5); Total Protein, Blood 6.1 g/dL (6.4-8.2)
--- NOTE | 2020-07-08 06:31 | NUR ---
SHIFT SUMMARY PT REMAINS INTUBATED AND SEDATED. PT HAS PROPOFOL INF @20MCG/KG/MIN TO RIGHT AC 20G, SITE WNL, DRESSING C/D/I. PT HAS NS @10ML/HR INF TO LEFT FA 20G, SITE WNL, DRESSING C/D/I. SL 20G TO RIGHT HAND, DRESSING C/D/I. PT HAS OG WITH CHP INF @35ML/HR, TOLERATING FEEDS WELL. ABD SOFT. KHAN DRAINING HAYDEE COLORED URINE. BILATERAL SOFT WRIST RESTRAINTS SECURE. NO SBT OR SED VAC DONE THIS AM PER MANAGER RAIL. EEG COMPLETE. NO RESULTS YET. PT CONTINUES TO BE RESPONSIVE TO PAIN. PT NOT FOLLOWING COMMANDS OR TRACKING. PT HAS OCCASSIONAL NYSTAGMUS AND SEIZURE LIKE ACTIVITY. STOPS SPONTANEOUSLY. 1 SMALL SOFT BM DURING SHIFT. WILL REPORT TO ONCOMING SHIFT.
--- NOTE | 2020-07-08 07:45 | NUR ---
Receieved report from Jose Raul ABDI. Patient is intubated and lightly sedated. She has 8.0 ET and 24 cm at lips with vent settings of AC 16, TV 400, FiO2 25% and PEEP 5.0 and sats 99%. She has OG in place with VHP at just increased rate of 45 ml/hr at goal rate woth 30 ml water flushes Q4. She has 20 ga LFA infusing NS TKO, 20ga RAC infusing Propofol at 20 mcg/kg/hr, and 20ga RH flushed and SL, all three IV's dressings intact and sites WNL's. She has 16 Fr Bautista draining to gravity yellow urine. She is afebrile at 97.6.
--- NOTE | 2020-07-08 09:35 | NUR ---
Dr Alejandra and RT in room. I placed Propofol on standby and they place on Spon. mode, PS 8, FiO2 30% and sats 99%. No other changes.
--- NOTE | 2020-07-08 11:42 | NUR ---
Patient remains off Propofol and show no sign of awakening, Dr Alejandra pincged clavicles and no response. VSS, No changes to vent settings or gtt's. Talked with lynn Beaulieu and gave update.
--- NOTE | 2020-07-08 14:00 | NUR ---
Patient getting ready for Head CT. Rate still not controlled and 70-170's, Systolics 120-150's and sats >95% and current settings. Patient remains back on Propofol.
--- NOTE | 2020-07-08 16:00 | NUR ---
CT delayed and just got back, she tolerated well and will await results to see if to set up for LP. VSS, See EMR.Minimal neuro reponse, a little eye movement and minimal LE gross movements, Propofol remains at 30 mcg/kg/min. She continues to leak liquid stool in small amounts.
--- NOTE | 2020-07-08 18:02 | NUR ---
CT was clear and Dr Alejandra just finished LP and fluid crytal clear and 4 vials were walked uop to lab. Dr Alejandra want s Abx held and he will call to sart or DC. Repositioned for comfort. restaints remains to UE's. Vent setting AC 16, TV 400, FiO2 30%, PEEP 5.0 and sats >95%. Reduced Propofol to 20mcg/kg/min. Lily has dark surekha 400ml. New TF order VHP done switch to Pivot at rate of 40ml/with 30ml water flushes Q4.
[2020-07-08 18:06] LABS: Automated CSF WBC Count 0.009 K/mm3 (0-5); WBC Count, CSF 9 /mm3 (0-5)
[2020-07-08 18:16] LABS: Color, CSF No Color (No Color); RBC Count, CSF 11 /mm3 (0-0)
[2020-07-08 18:17] LABS: Appearance, CSF Clear (Clear)
[2020-07-08 18:27] LABS: Lymphocytes, CSF 26 % (40-80); Monocytes, CSF 48 % (15-45); Neutrophils, CSF 26 % (0-6)
--- NOTE | 2020-07-08 19:00 | NUR ---
ASSUMED CARE ASSUMED CARE OF PATIENT. REMAINS INTUBATED- AC 16, TV 400, PEEP 5, FIO2 30%. RR 16-17. SEDATED WITH PROPOFOL AT 20MCG/KG/MIN. WITHDRAWS BLE TO NOXIOUS STIMULI. SLIGHT SPONTANEOUS MOVEMENT NOTED IN FEET. NO OTHER SPONTANEOUS MOVEMENT NOTED. MONITOR SHOWS SR WITH PACs, RATE 70s. SBP 160s-170s. OG WITH VITAL HIGH PROTEIN AT GOAL RATE OF 45CC/HR AND 30CC H20 FLUSH Q4H. KHAN PATENT AND DRAINING TO GRAVITY. SCATTERED BRUISES NOTED. SEE SHIFT ASSESSMENT FOR FULL ASSESSMENT.
[2020-07-08 19:30] LABS: Cryptococcus Neoformans/Gattii Not Detected (NOT DETECT); Enterovirus Not Detected (NOT DETECT); Escherichia Coli K1 Not Detected (NOT DETECT); Haemophilus Influenza Not Detected (NOT DETECT); Herpes Simplex Virus 1 Not Detected (NOT DETECT); Herpes Simplex Virus 2 Not Detected (NOT DETECT); Human Herpesvirus 6 Not Detected (NOT DETECT); Human Parechovirus Not Detected (NOT DETECT); Listeria Monocytogenes Not Detected (NOT DETECT); Neisseria Meningitidis Not Detected (NOT DETECT); Streptococcus Agalactiae Not Detected (NOT DETECT); Streptococcus Pneumoniae Not Detected (NOT DETECT); Varicella Zoster Virus Not Detected (NOT DETECT)
--- NOTE | 2020-07-08 22:10 | NUR ---
TUBE FEEDING TUBE FEEDING CHANGED TO PIVOT 1.5 PER ORDER. STARTED AT 25CC/HR WITH GOAL RATE OF 40CC/HR.
[2020-07-09 03:51] LABS: BASOPHILS ABSOLUTE AUTO 0.04 K/mm3 (0.00-0.23); BASOPHILS PERCENT AUTO 0 % (0-2); EOSINOPHILS ABSOLUTE AUTO 0.04 K/mm3 (0.00-0.68); EOSINOPHILS PERCENT AUTO 0 % (0-6); Hematocrit 40.5 % (33.0-51.0); Hemoglobin 13.1 g/dL (11.5-16.0); IMMATURE GRAN ABSOLUTE AUTO 0.07 K/mm3 (0.00-0.10); IMMATURE GRAN PERCENT AUTO 0 % (0-1); LYMPHOCYTES ABSOLUTE AUTO 2.59 K/mm3 (0.84-5.20); LYMPHOCYTES PERCENT AUTO 15 % (21-46); MONOCYTES PERCENT AUTO 9 % (4-13); Mean Corpuscular HGB 29.8 pg (26.0-34.0); Mean Corpuscular HGB Conc 32.3 g/dL (31.5-36.5); Mean Corpuscular Volume 92 fL (80-100); NEUTROPHILS ABSOLUTE AUTO 12.87 K/mm3 (1.96-9.15); NEUTROPHILS PERCENT AUTO 75 % (41-73); Platelet Count 153 K/mm3 (150-400); RDW Coefficient Variation 13.7 % (11.7-14.2); RDW Standard Deviation 46.5 fL (35.1-46.3); White Blood Cell Count 17.21 K/mm3 (4.00-11.30)
[2020-07-09 04:10] LABS: Albumin, Blood 2.2 g/dL (3.4-5.0); Albumin/Globulin Ratio 0.6 (0.8-1.8); Bilirubin, Total 0.3 mg/dL (0.1-1.0); Calcium, Blood 8.2 mg/dL (8.5-10.1); Creatinine, Blood 1.28 mg/dL (0.40-1.00); Globulin, Blood 3.7 g/dL (2.2-4.0); Magnesium, Blood 2.5 mg/dL (1.6-2.4); Phosphorus, Blood 2.3 mg/dL (2.5-4.9); Potassium, Blood 4.2 mmol/L (3.5-5.5); Total Protein, Blood 5.9 g/dL (6.4-8.2)
--- NOTE | 2020-07-09 04:20 | NUR ---
SEDATION VACATION PROPOFOL OFF AT THIS TIME FOR SEDATION VACATION.
--- NOTE | 2020-07-09 05:45 | NUR ---
SEDATION VACATION END OPENING EYES SPONTANEOUSLY AND MOVING ALL EXTREMITIES SPONTANEOUSLY. NOT FOLLOWING COMMANDS. INCREASED COUGHING NOTED. PROPOFOL RESTARTED AT 20MCG/KG/MIN.
--- NOTE | 2020-07-09 06:13 | NUR ---
SHIFT SUMMARY NO ACUTE CHANGES. REMAINS INTUBATED- AC 16, TV 400, PEEP 5, FIO2 30%. SEDATED WITH PROPOFOL AT 20MCG/KG/MIN. SEDATION VACATION DONE THIS AM- PT MORE AWAKE BUT STILL DOESN'T FOLLOW COMMANDS. OCCASIONAL SPONTANEOUS MOVEMENT NOTED. BILATERAL SOFT WRIST RESTRAINTS REMAIN IN PLACE. OG NOW WITH PIVOT 1.5 AT GOAL RATE OF 40CC/HR. RESIDUALS HAVE BEEN <10CC. INCONTINENT OF LOOSE STOOL X 4. KHAN PATENT AND DRAINING TO GRAVITY. SBP 140s-180s. TMAX 99.4F. CBG CHECKS Q6H- 232 AND 230 THIS SHIFT. COVERED WITH INSULIN PER ORDER. WILL REPORT TO ONCOMING RN WHEN AVAILABLE.
--- NOTE | 2020-07-09 07:20 | NUR ---
Received report from Mary ABDI. Patient is intubated and sedated. She has 8.0 ET and 24cm at teeth with vent settings of AC 16, TV 400, FiO2 30%, PEEP 5.0 and sats 99%. She withdrawls to care and when doing oral care opens mouth and moves tongue around. She has 20ga RAC dressing intact and site WNL's and is infusing Propofol at 20 mcg/kg/min and NS TKO. She also has 20ga LFA dresssing intact and site WNL and is flushed and SL'd. She has 16 Fr Bautista draining to gravity dark surekha colored urine. Oral care, am care and repositioning done. Temp 98.3 VSS, See EMR and is in SR with PAC's.
--- NOTE | 2020-07-09 10:16 | NUR ---
Dr Alejandra by to see patient and we placed Propofol on standby. Significant other and son want to come by and see patient and talk with Dr Alejandra. No other significant chnages with patient.
--- NOTE | 2020-07-09 11:59 | NUR ---
Patient remains off Propofol and continues ot open eye and does not track or follow commands. No vent setting changes. Gave 30 ml Latalose via OG. Will continue to monitor. Hypertensive all other VSS, See EMR.
--- NOTE | 2020-07-09 14:07 | NUR ---
No significant changes with patientys neuro. She opens eyes and looks back and forth , but follows no direction with minmal orbital response. Remains hypertensive, with Hr 80's, No vent setting changes to day and still remains off p[ropofol and sats >95%. TF pivot 1.5 continues at 40 ml/hr and 30 ml water flushes Q4.
--- NOTE | 2020-07-09 16:00 | NUR ---
Patient restarted on Pro[ofol at 30 mcg/kg/min r/t increased HR as yesterday 80-200. Talked with Dr Alejandra and restarted. No changes to vent setting and sats >95%. Systolic with rapid HR was 90-100. Patient continued to have eye open and some movement to LE's .
--- NOTE | 2020-07-09 17:43 | NUR ---
Patient continues with rapid rates 80-[address] Alejandra placed oreders for 5 mgIV and then 25 mg PT, She is currently SR with many PAC in the 70,s, Reduced Propofol back to 20 mcg/kg/min, Oral care positioning and cleaned liquid stool up, changed dry flows. Vent setytings remains same all day AC 16, TV 400, FiO2 30% and PEEP 5.0 and sats >95. Bautista had 600 ml surekha colored urine.
--- NOTE | 2020-07-09 19:00 | NUR ---
ASSUMED CARE ASSUMED CARE OF PATIENT. REMAINS INTUBATED- AC 16, TV 400, PEEP 5, FIO2 30%. RR 20-21. SEDATED WITH PROPOFOL AT 20MCG/KG/MIN. WITHDRAWS BUE AND BLE TO NOXIOUS STIMULI. SLIGHT SPONTANEOUS MOVEMENT NOTED IN FEET. EYELIDS FLUTTER BUT PT DOES NOT OPEN THEM. AMADOU, 4MM. DOWNWARD GAZE NOTED. . MONITOR SHOWS SR WITH PACs, RATE 70s. SBP 140s. OG WITH PIVOT 1.5 AT GOAL RATE OF 40CC/HR AND 30CC H20 FLUSH Q4H. KHAN PATENT AND DRAINING TO GRAVITY. SCATTERED BRUISES NOTED. SEE SHIFT ASSESSMENT FOR FULL ASSESSMENT.
[2020-07-10 03:49] LABS: BASOPHILS ABSOLUTE AUTO 0.05 K/mm3 (0.00-0.23); BASOPHILS PERCENT AUTO 0 % (0-2); EOSINOPHILS ABSOLUTE AUTO 0.19 K/mm3 (0.00-0.68); EOSINOPHILS PERCENT AUTO 1 % (0-6); Hematocrit 42.5 % (33.0-51.0); Hemoglobin 12.8 g/dL (11.5-16.0); IMMATURE GRAN ABSOLUTE AUTO 0.06 K/mm3 (0.00-0.10); IMMATURE GRAN PERCENT AUTO 0 % (0-1); LYMPHOCYTES ABSOLUTE AUTO 2.49 K/mm3 (0.84-5.20); LYMPHOCYTES PERCENT AUTO 14 % (21-46); MONOCYTES ABSOLUTE AUTO 2.13 K/mm3 (0.16-1.47); MONOCYTES PERCENT AUTO 12 % (4-13); Mean Corpuscular HGB 28.5 pg (26.0-34.0); Mean Corpuscular HGB Conc 30.1 g/dL (31.5-36.5); Mean Corpuscular Volume 95 fL (80-100); Mean Platelet Volume 11.9 fL (9.1-12.4); NEUTROPHILS ABSOLUTE AUTO 12.37 K/mm3 (1.96-9.15); NEUTROPHILS PERCENT AUTO 72 % (41-73); Platelet Count 174 K/mm3 (150-400); RDW Coefficient Variation 13.7 % (11.7-14.2); RDW Standard Deviation 47.6 fL (35.1-46.3); Red Blood Cell Count 4.49 M/mm3 (3.80-5.20); White Blood Cell Count 17.29 K/mm3 (4.00-11.30)
[2020-07-10 04:08] LABS: Calcium, Blood 8.3 mg/dL (8.5-10.1); Creatinine, Blood 1.14 mg/dL (0.40-1.00); Magnesium, Blood 2.7 mg/dL (1.6-2.4); Phosphorus, Blood 2.6 mg/dL (2.5-4.9); Potassium, Blood 3.6 mmol/L (3.5-5.5)
--- NOTE | 2020-07-10 06:16 | NUR ---
SHIFT SUMMARY NO ACUTE CHANGES. REMAINS INTUBATED- AC 16, TV 400, PEEP 5, FIO2 30%. RR 16-21. SEDATED WITH PROPOFOL AT 20MCG/KG/MIN. MINIMAL SPONTANEOUS GROSS MOTOR MOVEMENT NOTED. WITHDRAWS TO NOXIOUS STIMULI. NOT FOLLOWING COMMANDS. AMADOU. INTERMITTENT DOWNWARD GAZE NOTED. HYPERTENSIVE AT TIMES WITH SBP 180-200s. MONITOR SHOWS SR WITH PACs, RATE 60-70s MOSTLY. ONE EPISODE THIS SHIFT OF SELF-LIMITING INCREASED HEART RATE, 140s. AFEBRILE. OG WITH PIVOT 1.5 AT GOAL RATE OF 40CC/HR. RESIDUALS <10CC. KHAN PATENT AND DRAINING TO GRAVITY. INCONTINENT OF MULTIPLE LOOSE STOOLS DURING SHIFT. FLEXISEAL INSERTED. WILL REPORT TO ONCOMING RN WHEN AVAILABLE.
--- NOTE | 2020-07-10 07:15 | NUR ---
Assumed care of pt at 0700. Bedside report received from Mary ABDI. Pt sedated with propofol at 20 mcg/kg/min. Pt responsive to pain. Withdraws BUE and BLE when nail bed pressure applied. Downward gaze noted with slow nystagmus. Pupils equal, round and reactive. Gag and cough reflexes present. Pt not in restraints. Ventilated with 8.0 cm ETT, 24 cm ATG. Ventilator settings AC 16/400/5/30%. SpO2 90% or greater. Actual RR 18. Ventilator compliant. Large amount of thick vazquez sputum suctioned from ETT. OG tube with feeds per orders. Rectal tube in place. Bautista catheter draining clear, yellow urine.
--- NOTE | 2020-07-10 10:04 | NUR ---
Dr Alejandra in to see patient. Sedation turned off. Pt placed on pressure support 7/5, 35%. RR 22. Tidal volumes consistent, 300-350 mL. SpO2 90% or greater. No coughing. Pt opening eyes to painful stimulus. Will continue to closely reassess.
--- NOTE | 2020-07-10 10:55 | NUR ---
Discussed pt's bowel movements with Dr Alejandra, detailing that patient had 7 bowel movements per report from offgoing RN, including one bowel movement that was measured and greater than 500 mL. Discussed that stool is leaking around rectal tube. Discussed lactulose dosing. Provider stated to decrease frequency to BID instead of QID, but continue giving lactulose to r/o hepatic encephalopathy. Discussed pt's blood sugar and low sliding scale. Provider states he will review blood sugars and place new orders.
--- NOTE | 2020-07-10 12:00 | NUR ---
Pt hypertensive. Discussed with Dr Alejandra that patient has diffuse bruising to left lateral ankle. Plan to medicate patient for pain and then reassess blood pressure.
--- NOTE | 2020-07-10 15:01 | NUR ---
Pt's "ex-boyfriend", Victor Hugo, at bedside. Dr Alejandra at bedside to provide brief update. Plan to give labetalol for hypertension.
--- NOTE | 2020-07-10 15:30 | NUR ---
Orthopedic doctor, Dr Beth, in to see patient for left ankle. Provider places abiodun wrap on ankle and states that when patient is awake, she may bear weight as tolerated.
--- NOTE | 2020-07-10 15:33 | NUR ---
Stopped in to check on Shilpi. Remains on pressure support with no sedation. Billy, pt's friend who found her down at home, is at bedside. She does not respond to verbal stimuli and does not follow commands at this time. Billy reports that pt's son Christofer lives in [place]. Billy states Shilpi does not take care of her diabetes at home and he has found her down at home in the past and she has always gotten better. He states "Why won't she just wake up?" Emotional support given. PC to continue to follow for family support, symptom management and advanced care planning.
--- NOTE | 2020-07-10 18:30 | NUR ---
SUMMARY At this time, pt remains off sedation. Ventilator settings on spontaneous with PS 7/5. SpO2 30%. RR 18-22. Tidal volumes 300-350 mL. SR per monitor. BP hypertensive but much lower after receiving pain meds. BP did not improve with labetalol. Tube feeds per orders. Residuals measured <10 mL. Excellent output from jensen and rectal tube. Pt continues to leak stool around rectal tube. No acute changes to mentation. Will continue to closely monitor until care handoff and bedside report with oncoming RN.
--- NOTE | 2020-07-10 19:00 | NUR ---
ASSUMED CARE ASSUMED CARE OF PATIENT. REMAINS INTUBATED- SPONTANEOUS PS 7, PEEP 5, FIO2 30%. RR 12-20. NO SEDATION AT THIS TIME. WITHDRAWS BUE AND BLE TO NOXIOUS STIMULI. SLIGHT SPONTANEOUS GROSS MOTOR MOVEMENT NOTED IN FEET. EYELIDS FLUTTER AND PT DOES OCCASIONALLY OPEN EYES SPONTANEOUSLY. NO TRACKING NOTED. GAZE IS TO THE RIGHT AT THIS TIME. AMADOU, 3MM. MONITOR SHOWS SR, RATE 80s. SBP 180s. OG WITH PIVOT 1.5 AT GOAL RATE OF 40CC/HR AND 30CC H20 FLUSH Q4H. KHAN PATENT AND DRAINING TO GRAVITY. SCATTERED BRUISES NOTED. LEFT LE WITH LISETTE WRAP IN PLACE. RECTAL TUBE IN PLACE WITH LIQUID BROWN STOOL. SEE SHIFT ASSESSMENT FOR FULL ASSESSMENT.
--- NOTE | 2020-07-11 03:40 | NUR ---
RHYTHM CHANGE/HYPERTENSION AT APPROXIMATELY 0223, MONITOR SHOWS RHYTHM CHANGE TO AFIB WITH RVR, RATE 150s-180s. BP 195/72 AT THAT TIME. MEDICATED WITH FENTANYL 25MCG IV AND LABETALOL 20MG IV AT 0233. EKG DONE. DR. GONSALES NOTIFIED AT 032 AND NEW ORDERS RECEIVED. DILTIAZEM 20MG IVP GIVEN AT 0330 AND TORADOL 30MG IV GIVEN AT 0337. HR NOW 100-120s. BP 174/58.
[2020-07-11 03:56] LABS: BASOPHILS ABSOLUTE AUTO 0.05 K/mm3 (0.00-0.23); BASOPHILS PERCENT AUTO 0 % (0-2); EOSINOPHILS ABSOLUTE AUTO 0.32 K/mm3 (0.00-0.68); EOSINOPHILS PERCENT AUTO 2 % (0-6); Hematocrit 40.3 % (33.0-51.0); Hemoglobin 12.8 g/dL (11.5-16.0); IMMATURE GRAN ABSOLUTE AUTO 0.06 K/mm3 (0.00-0.10); IMMATURE GRAN PERCENT AUTO 0 % (0-1); LYMPHOCYTES ABSOLUTE AUTO 1.47 K/mm3 (0.84-5.20); LYMPHOCYTES PERCENT AUTO 10 % (21-46); MONOCYTES ABSOLUTE AUTO 1.64 K/mm3 (0.16-1.47); MONOCYTES PERCENT AUTO 12 % (4-13); Mean Corpuscular HGB 28.8 pg (26.0-34.0); Mean Corpuscular HGB Conc 31.8 g/dL (31.5-36.5); Mean Corpuscular Volume 91 fL (80-100); NEUTROPHILS ABSOLUTE AUTO 10.75 K/mm3 (1.96-9.15); NEUTROPHILS PERCENT AUTO 75 % (41-73); Platelet Count 220 K/mm3 (150-400); RDW Coefficient Variation 13.5 % (11.7-14.2); RDW Standard Deviation 45.1 fL (35.1-46.3); Red Blood Cell Count 4.44 M/mm3 (3.80-5.20); White Blood Cell Count 14.29 K/mm3 (4.00-11.30)
[2020-07-11 04:15] LABS: Anion Gap 7 mmol/L (6-16); Blood Urea Nitrogen 40 mg/dL (8-24); Bun/Creatinine Ratio 42.1 (12.0-20.0); CO2, Blood 25 mmol/L (21-32); Calcium, Blood 8.8 mg/dL (8.5-10.1); Chloride, Blood 111 mmol/L (98-108); Creatinine, Blood 0.95 mg/dL (0.40-1.00); Glomerular Filtration Rate >60 (60-); Glucose, Blood 301 mg/dL (70-99); Potassium, Blood 3.8 mmol/L (3.5-5.5); Sodium, Blood 143 mmol/L (136-145)
--- NOTE | 2020-07-11 06:26 | NUR ---
SHIFT SUMMARY REMAINS INTUBATED- SPONTANEOUS VENTILATION PS 7, PEEP 5, FIO2 30%. MEDICATED WITH FENTANYL 25MCG IV X 3 DOSES AND TORADOL 30MG IV X1 DOSE DURING SHIFT FOR PAIN AND FOR VENTILATOR TOLERANCE. PT WENT INTO AFIB WITH RVR AT APPROXIMATELY 0220. AFLUTTER AT NOTED AT TIMES. MEDICATED WITH DILTIAZEM 20MG IVP X1. ALSO MEDICATED WITH LABETALOL 20MG IV X 1 FOR HYPERTENSION. PT REMAINS IN AFIB, RATE 90-110s. SBP 170s-180s. NO CHANGE IN NEURO STATUS DURING SHIFT. OG AT GOAL RATE OF 40CC/HR. KHAN PATENT AND DRAINING. RECTAL TUBE IN PLACE WITH LIQUID BROWN STOOL. WILL REPORT TO ONCOMING RN WHEN AVAILABLE.
--- NOTE | 2020-07-11 07:15 | NUR ---
Assumed care of pt at 0700. Bedside report recieved from Mary ABDI. Pt not sedatedj, sedation has been off since 2/4 AM. Pt not in restraints, has been out of restraints for several days. Ventilated through 8.0 cm ETT, 24 cm ATG. Ventilator settings PS 7/5 and 30% FiO2. SpO2 90% or greater. RR 16-20. Tidal volumes 400-450 mL. Pt coughing only with repositioning. Small amount of thick white sputum suctioned from ETT. OG tube with feeds and flushes per orders. Less than 10 mL residual ordered. Rectal tube draining liquid stool to gravity. Bautista catheter patent and draining clear yellow urine.
--- NOTE | 2020-07-11 11:37 | NUR ---
Discussed BP with Dr Palencia. Pt's amlodipine and losartan started per home regimen. Plan to continue with scheduled metoprolol and PRN labetalol. Hold pt's home carvedilol at this time.
--- NOTE | 2020-07-11 19:21 | NUR ---
SUMMARY No acute changes t/o shift. Pt remains off sedation and out of restraints. No episodes of tachycardia this shift. Maximum residual measured 10 mL. Rectal tube replaced as pt was having bowel movement around tube instead of into tube. Will continue to closely montior until care handoff and bedside report with oncoming RN.
--- NOTE | 2020-07-11 22:08 | NUR ---
ASSUMED CARE AT 1900 PT LAYING IN BED INTUABED WITH VENT SETTINGS PS 7/5, FIO2 30%, TV 400-500. PT NOT RESONSIVE TO VERBAL STIMULI BUT DOES REACT TO PAINFUL STIMULI, PT OCCATIONALLY YAWNS AND WILL OPEN EYES FCI AND BLINK FOR ABOUT 5 MIN AND THEN WILL CLOSE EYES AGAIN. GAG AND COUGH NOT PRESENT DURING ORAL CARE OR SUCTIONING, PT DOES CHEW ON ETT, NO SEDATION AT THIS TIME. AFIBRILE. HR 75-110. SBP 180-220. PRN LABETALOL GIVEN FOR SBP OVER 200, FOLLOWING BP SBP 180. PIVOT INFUSING VIA OG AT 40ML/HR (GOAL) WITH 30ML WATER FLUSHES Q4HR. RECTAL TUBE AND KHAN IN PLACE AND DRAINING TO GRAVITY. LT FOOT WRAPPED IN LISETTE BANDAGE, MINIMAL SWELLING NOTED AT THIS TIME. SEE SHIFT ASSESSMENT FOR FULL ASSESSMENT.
--- NOTE | 2020-07-12 02:20 | NUR ---
HYPERTENSION PT SBP >200 SINCE 0000, SCHEDULED LOPRESSOR, PRN TORADOL, PRN LABETALOL, AND PRN FENTANYL GIVEN AND SBP REMAINS >200. DR VALENTIN PAGED AND RETURNED CALL PROVIDING NEW OREDERS FOR NITRO-BID AND CLONIDINE 0.1MG ONCE.
[2020-07-12 04:19] LABS: BASOPHILS ABSOLUTE AUTO 0.06 K/mm3 (0.00-0.23); BASOPHILS PERCENT AUTO 1 % (0-2); EOSINOPHILS ABSOLUTE AUTO 0.36 K/mm3 (0.00-0.68); EOSINOPHILS PERCENT AUTO 3 % (0-6); Hematocrit 36.4 % (33.0-51.0); Hemoglobin 11.3 g/dL (11.5-16.0); IMMATURE GRAN ABSOLUTE AUTO 0.05 K/mm3 (0.00-0.10); IMMATURE GRAN PERCENT AUTO 0 % (0-1); LYMPHOCYTES ABSOLUTE AUTO 1.51 K/mm3 (0.84-5.20); LYMPHOCYTES PERCENT AUTO 13 % (21-46); MONOCYTES ABSOLUTE AUTO 1.28 K/mm3 (0.16-1.47); MONOCYTES PERCENT AUTO 11 % (4-13); Mean Corpuscular HGB 28.7 pg (26.0-34.0); Mean Corpuscular Volume 92 fL (80-100); Mean Platelet Volume 11.7 fL (9.1-12.4); NEUTROPHILS ABSOLUTE AUTO 8.21 K/mm3 (1.96-9.15); NEUTROPHILS PERCENT AUTO 72 % (41-73); Platelet Count 220 K/mm3 (150-400); RDW Coefficient Variation 13.4 % (11.7-14.2); RDW Standard Deviation 45.4 fL (35.1-46.3); Red Blood Cell Count 3.94 M/mm3 (3.80-5.20); White Blood Cell Count 11.47 K/mm3 (4.00-11.30)
[2020-07-12 04:39] LABS: Alanine Aminotransfer (ALT/SGP 44 U/L (12-78); Albumin/Globulin Ratio 0.5 (0.8-1.8); Alk Phos 80 U/L (50-136); Anion Gap 6 mmol/L (6-16); Aspartate Aminotrans (AST/SGOT 50 U/L (12-37); Bilirubin, Total 0.5 mg/dL (0.1-1.0); Blood Urea Nitrogen 41 mg/dL (8-24); Bun/Creatinine Ratio 45.4 (12.0-20.0); CO2, Blood 26 mmol/L (21-32); Calcium, Blood 8.3 mg/dL (8.5-10.1); Chloride, Blood 114 mmol/L (98-108); Globulin, Blood 3.9 g/dL (2.2-4.0); Glomerular Filtration Rate >60 (60-); Glucose, Blood 271 mg/dL (70-99); Magnesium, Blood 2.5 mg/dL (1.6-2.4); Phosphorus, Blood 2.3 mg/dL (2.5-4.9); Potassium, Blood 3.7 mmol/L (3.5-5.5); Sodium, Blood 146 mmol/L (136-145); Total Protein, Blood 5.9 g/dL (6.4-8.2)
[2020-07-12 05:09] LABS: PCO2 Arterial 37.9 mmHg (35-45); PO2 Arterial 124 mmHg (80-100); pH Blood Arterial 7.44 (7.35-7.45)
--- NOTE | 2020-07-12 05:44 | NUR ---
UPDATE PT SBP SUSTAINING AROUND 200, LAST BP 199/65, SCHEDULED LOPRESSOR AND NITRO-BID GIVEN. ALSO PT WILL HAVE A FEW BREATHS WITH Vt 100-200 AND THEN Vt WILL JUMP TO 800-1000. DR VALENTIN NOTIFIED ON THE FLOOR. ORDERS FOR CT HEAD SCAN W/OUT CONTRAST ORDERED.
--- NOTE | 2020-07-12 06:27 | NUR ---
END OF SHIFT SUMMARY PT LAYING IN BED AND CONT TO BE INTUBATED WITH VENT SETTINGS SPONTANIOUS /, FIO2 30%, AND Vt RETURNED TO 400-500. NO PURPOSEFUL MOVEMENT NOTED, PT RESPONSIVE TO PAINFUL STIMULI, NO GAG OR COUGH PRESENT, OCCATIONALLY YAWNS. AFIBRILE. SBP 180-220, AT 0600 SBP 140-160; SEE EMAR AND NURSE NOTES. HR 70-100. PIVOT INFUSING AT 40ML/HR (GOAL) WITH 30ML WATER FLUSHES Q4HR. RECTAL TUBE AND KHAN IN PLACE AND DRAINING TO GRAVITY. WILL REPORT TO AM RN WHEN AVAILABLE.
--- NOTE | 2020-07-12 07:52 | NUR ---
Assumed care of pt at 0700. Bedside report received from Yecenia ABDI. Pt remains intubated without sedation and unrestrained. Ventilator settings spontaneous with PS 7/5 and 30% FiO2. SpO2 99%. RR 14. Tidal volumes 400-450 mL. Pt does not open eyes, even with painful stimulus applied. Difficulty to stimulate, but present gag. Unable to obtain cough reflex. OG tube feeds and flushes per orders. Rectal tube in place with gravity drain. SR per monitor. BP high, labetalol given and plans for head CT this AM due to persistent hypertension depite extensive pharmacologic intervention.
--- NOTE | 2020-07-12 11:01 | NUR ---
Notified Dr Palencia that CT has resulted. No new orders. Provider aware of pt's continued hypertension.
--- NOTE | 2020-07-12 16:00 | NUR ---
Pt's spouse visiting at bedside. Update given.
--- NOTE | 2020-07-12 18:26 | NUR ---
SUMMARY No acute changes to pt condition since intial assessment. Hypertension persists. Pt now has clonidine patch to right shoulder and nitro paste to right chest wall. Received two doses of PRN labetalol. Ventilator settings remain 7/5 with 30% FiO2. SpO2 90% or greater. Excellent urine output. 50 mL output from rectal tube with scant leakage around tube. Maximum residual measured from OG tube was 10 mL. This RN provided plan of care updates to sons Naveen and Rohan, as well as pt's partner, Billy. Will continue to closely monitor until care handoff and bedside report with oncoming RN.
--- NOTE | 2020-07-12 21:48 | NUR ---
ASSUMED CARE AT 1900 PT LAYING IN BED INTUABED WITH VENT SETTINGS SPON 7/5, FIO2 30%, Vt 600-800. PT NOT RESPONSIVE TO VERBAL STIMULI AND OCCATIONAL PAINFUL STIMULI, COUGH AND GAG REFLEX ARE VERY WEAK, PLANTAR REFLEXES ARE NOT PRESENT. AFIBRILE. HR 60-85. SBP 170-195, CLONIDINE PATCH IN PLACE ON NATHANIEL. PIVOT INFUSING VIA OG AT 40ML/HR (GOAL) WITH 90ML WATER FLUSHES Q4HR; MINIMAL RESIDUALS. RECTAL TUBE AND KHAN PATENT AND DRAINING TO GRAVITY. LT FOOT REWRAPED IN LISETTE BANDAGE. SEE SHIFT ASSESSMENT FOR FULL ASSESSMENT.
[2020-07-13 03:53] LABS: BASOPHILS ABSOLUTE AUTO 0.06 K/mm3 (0.00-0.23); BASOPHILS PERCENT AUTO 1 % (0-2); EOSINOPHILS ABSOLUTE AUTO 0.33 K/mm3 (0.00-0.68); EOSINOPHILS PERCENT AUTO 3 % (0-6); Hemoglobin 11.9 g/dL (11.5-16.0); IMMATURE GRAN ABSOLUTE AUTO 0.05 K/mm3 (0.00-0.10); IMMATURE GRAN PERCENT AUTO 1 % (0-1); LYMPHOCYTES ABSOLUTE AUTO 1.42 K/mm3 (0.84-5.20); LYMPHOCYTES PERCENT AUTO 13 % (21-46); MONOCYTES ABSOLUTE AUTO 1.23 K/mm3 (0.16-1.47); MONOCYTES PERCENT AUTO 11 % (4-13); Mean Corpuscular HGB 29.5 pg (26.0-34.0); Mean Corpuscular HGB Conc 32.2 g/dL (31.5-36.5); Mean Corpuscular Volume 92 fL (80-100); Mean Platelet Volume 11.9 fL (9.1-12.4); NEUTROPHILS ABSOLUTE AUTO 7.88 K/mm3 (1.96-9.15); NEUTROPHILS PERCENT AUTO 72 % (41-73); Platelet Count 285 K/mm3 (150-400); RDW Coefficient Variation 13.5 % (11.7-14.2); RDW Standard Deviation 45.5 fL (35.1-46.3); Red Blood Cell Count 4.04 M/mm3 (3.80-5.20); White Blood Cell Count 10.97 K/mm3 (4.00-11.30)
[2020-07-13 04:11] LABS: Calcium, Blood 8.9 mg/dL (8.5-10.1); Magnesium, Blood 2.2 mg/dL (1.6-2.4); Phosphorus, Blood 2.1 mg/dL (2.5-4.9); Potassium, Blood 3.2 mmol/L (3.5-5.5)
--- NOTE | 2020-07-13 06:14 | NUR ---
END OF SHIFT SUMMARY PT CONT TO BE INTUBATED WITH VENT SETTINGS SPON 7/5, FIO2 30%. PT RESPONDS TO MINIMAL STIMULI BUT DOES CHEW ON ETT, OCCATIONAL GROSS MOVEMENT OF BLE, YAWNS, AND WEAK COUGH/GAG. AFIBRILE. HR 70-100. SBP 150-210, LABETALOL 40MG PRN GIVEN TWICE FOR SBP >200, PRN HELPFUL. PIVOT INFUSING VIA OG AT 40ML/HR WITH 90ML WATER FLUSHES Q4HR. KHAN AND RECTAL TUBE PATENT AND DRAINING TO GRAVITY. WILL REPORT TO AM RN WHEN AVAILABLE.
--- NOTE | 2020-07-13 09:28 | NUR ---
AM NOTE... PT REMAINS UNRESPONSIVE TO VERBAL STIMULI. SPONT MOVEMENT OF L LEG WITH FLEXION OF KNEE AND FOOT. ALSO EXTENSION OF BOTH ARMS AT TIMES, HOWEVER NO PURPOSEFUL MOVEMENTS. NO GAG, SWALLOW OR COUGH NOTED TO STIMULATION BUT SPONT YAWNS AND EYE BLINKS NOTED. BP HAS BEEN ELLEVATED NOTE AND PRN LABATALOL GIVEN NOTED. ONE DOSE OF PRN ATIVAN ATTEMPTED WITH BP DOWN NOTED AND WILL FOLLOW.
--- NOTE | 2020-07-13 15:45 | NUR ---
IN THE LAST 1-2 HOURS...THIS RN AND DR VALENTIN HAVE SPOKEN WITH FAMILY AND PT FRIEND MULTIPLE TIMES. NANDINI THE SON IN SPEAKING WITH DR VALENTIN HAS STATED THAT THE PT WOULD NOT WANT TO CONTINUE LIVING THIS WAS AND THAT HER WISHES WOULD BE COMFORT CARE. KRISTINE THE LONG TIME FRIEND HAS BEEN IN CONVERSATION WITH THE 2 SON'S AND THE UNDERSTANDING OF ALL IS THAT PT WOULD NOT WANT TO LIVE LIKE THIS. DR VALENTIN HAS SPOKEN WITH LOCAL FAMILY AND HAS OBTAINED DIRECTION TO PT WISHES AND PT TO BE EXTUBATED KYLEIGH.
--- NOTE | 2020-07-13 16:01 | NUR ---
PT REPORT CALLED TO JASVIR ABDI AND PT TO BE TRANSFERED VIA BED TO 302 SOON. WILL ATTEMPT TO CALL LOCAL SON WITH STATUS REPORT KYLEIGH.
--- NOTE | 2020-07-13 17:11 | NUR ---
FAMILY CALL NOTE... KRISTINE THE S.O. AND SON'S ROZINA AND NANDINI WERE CALLED AND MADE AWARE OF PT POST EXTUBTION STATUS. PT PERSONAL RINGS WERE SENT TO FLOOR WITH SHANNAN FRIAS AND IN PT PERSONAL BELONGINGS. KRISTINE INDICATES HE WOULD MAINTENANCE PIPEFITTER THE RINGS.
--- NOTE | 2020-07-13 17:52 | NUR ---
PT ARRIVED AT 1600. PT HAS NOT MADE ANY KIND OF RESPONSE TO CARE GIVEN OR INTERACTION. PT IS TURNED Q2 HRS. RECTAL TUBE REMOVED. PT LOOKS COMFORTABLE. BED IN LOWEST POSITION WILL CONTINUE TO MONITOR.
--- NOTE | 2020-07-13 19:00 | NUR ---
ASSUMED CARE RECEIVED REPORT FROM JIN TAY. PT APPEARS COMFORTABLE, RESPS E/U, NO ACUTE NEEDS ASSESSED AT THIS TIME. CALL LIGHT IN REACH, BED IN LOW POSITION. CONTINUE TO MONITOR.
--- NOTE | 2020-07-13 23:14 | NUR ---
SPOKE TO DR. HDEZ REGARDING PT'S COMFORT CARE STATUS. ORDERS FOR TELEMETRY, TUBE FEEDS, AND CBGS DISCONTINUED.
--- NOTE | 2020-07-14 02:36 | NUR ---
THIS RN IN ROOM, PT MOANING. DIAPHORETIC, SKIN WARM AND FLUSHED. COOL WASHCLOTH PLACED ON FOREHEAD, THICK BLANKETS REMOVED, PT COVERED IN SHEET. SUCTIONED SECRETIONS. PT SEEMS MORE COMFORTABLE.
--- NOTE | 2020-07-14 04:06 | NUR ---
SHIFT SUMMARY PT ASLEEP, APPEARS COMFORTABLE, RESPS E/U. NO ACUTE DISTRESS NOTED. REPOSITIONED T/O NIGHT, PAIN AND SECRETIONS MANAGED WITH MEDS PER EMAR. NO ACUTE NEEDS ASSESSED AT THIS TIME. CONTINUE TO MONITOR, REPORT OFF TO DAY RN.
--- NOTE | 2020-07-14 10:04 | NUR ---
PATIENT SLEEPING AT THIS TIME. NO S/S OF PAIN OR DISTRESS.
--- NOTE | 2020-07-14 10:42 | NUR ---
Pt resting in bed upon arrival with her eyes closed. Accompanied by nursing scheduler Carlos. Pt is non responsive and appears comfortable with no S/S of distress at this time. SO Victor Hugo at bedside. Answered questions and offered therapeutic listening. Offered emotional support as Carlos is tearful. Spoke with Bedside RN Dixie and discussed case. Dixie reports no concerns at this time. Palliative Care will remain available.
--- NOTE | 2020-07-14 12:00 | NUR ---
PATIENT WARM TO TOUCH. HEAT TURNED DOWN AND BLANKETS REMOVED. S/O KRISTINE AT BEDSIDE.
--- NOTE | 2020-07-14 14:00 | NUR ---
PATIENT MEDICATED WITH ROXINOL AND NOW APPEARS MUCH MORE COMFORTABLE. COOL WASH CLOTH TO FOREHEAD. ORAL SUCTIONING AND ORAL CARE COMPLETED.
--- NOTE | 2020-07-14 17:56 | NUR ---
Spiritual care note: No family present at time of visit, although it was visiting hours. Shilpi appears comfortable. She is mildly responsive to touch, but did not seem to awaken. She appears well cared-for by nursing. breaths shallow but even. I provided presence and prayer. I will remain available.
--- NOTE | 2020-07-14 18:38 | NUR ---
REPOSITIONED PATIENT. NO S/S OF PAIN OR DISTRESS.
--- NOTE | 2020-07-15 06:06 | NUR ---
SHIFT SUMMARY COMFORT CARE. NONRESPONSIVE. NONVERBAL. OPENS EYES TO SOUND AT TIMES, DOES NOT TRACK OR FOLLOW. WILL MOAN, GRIMACE & HAVE RESTLESS LEGS WHEN IN DISCOMFORT, MEDICATED 2X c 10MG ROXANOL & 1X c 1MG ATIVAN FOR COMFORT. RR 8-10 BREATHS/MIN, PERIODS OF APNEA c BREATHING. ORAL CARE PROVIDED. TURNED & REPOSITIONED. WILL MONITOR.
--- NOTE | 2020-07-15 07:55 | NUR ---
PATIENT SLEEPING AT THIS TIME. NO S/S OF PAIN OR DISCOMFORT.
--- NOTE | 2020-07-15 10:01 | NUR ---
S/O AT BEDSIDE. MEDICATED WITH ROXINOL FOR PAIN AND REPOSITIONED.
--- NOTE | 2020-07-15 13:31 | NUR ---
Comfort Care Visit Pt resting in bed with her eyes closed. Pt is non responsive to verbal stimuli. Pt appears to be experiencing terminal restlessness as evidenced by constant movement of lower extremities. Spoke with Bedside RN Dixie and discussed case. Reviewed comfort medications with request for change in frequency and dose. Spoke with Dr Kramer and discussed case. Changed Roxanol order to 5-20mg Q 1 hour PRN and Ativan order to 1-2mg Q 4 hours PRN per V/O from Dr Kramer. Palliative Care will remain available.
--- NOTE | 2020-07-15 18:03 | NUR ---
ALTERNATING MORPHINE AND ATIVAN TO CONTROL PAIN AND RESTLESSNESS. MEDICATIONS WORKING WELL TO CONTROL AT THIS POINT. REPOSITONED AND PROVIDED ORAL CARE.
--- NOTE | 2020-07-15 18:04 | NUR ---
PATIENT RESTING COMFORTABLY AT THIS TIME. NO A/O OF PAIN OR DISCOMFORT ASSESSED.
--- NOTE | 2020-07-15 20:00 | NUR ---
COMFORT CARE. RESTING COMFORTABLY. NO S/S OF DISTRESS. WILL MONITOR.
--- NOTE | 2020-07-16 06:18 | NUR ---
SHIFT SUMMARY COMFORT CARE. NONVERBAL/NONRESPONSIVE. NO LONGER OPENING EYES TO VERBAL NOISE. MEDICATED c ROXANOL FOR PAIN-MOANS, GRIMACES, RESTLESS c LEGS KICKING IN BED. SUCTIONED & PROVIDED PO CARE PRN. TURNED & REPOSITIONED FOR COMFORT.
--- NOTE | 2020-07-16 07:32 | NUR ---
MORNING ASSESSMENT: PATIENT RESTING ON HER SIDE. PATIENT IS NONRESPONSIVE TO RN'S VOICE. PATIENT'S BROW IS SMOOTH. NO ACTIVITY IN LIMBS OR FACE. PATIENT IS QUIET WITH NO MOANING OR SOUNDS. PATIENTS RESPIRATIONS ARE EVEN, REGULAR, AND SHALLOW. NO SIGNS OF DISCOMFORT, DISTRESS OR AGITATION.
--- NOTE | 2020-07-16 13:57 | NUR ---
Comfort Care Visit Pt resting in bed with her eyes closed. Pt is non responsive and appears comfortable with no S/S of distress at this time. Spoke with Bedside RN Sagrario and discussed case. Palliative Care will remain available.
--- NOTE | 2020-07-16 16:14 | NUR ---
Spiritual care note: Pt was alone in room. She is non-responsive and appears comfortable. Recieved update from RN and was asked to t/c son, Bryan for undate. Bryan was appreciative and denied concerns. Bryan [phone]. I will remain available.
--- NOTE | 2020-07-16 19:00 | NUR ---
ASSUMED CARE REPORT RECEIVED FROM JIN ORTIZ. PT RESTING, APPEARS TO BE BECOMING INCREASINGLY COMFORTABLE, RECENTLY MEDICATED WITH ROXANOL PER DAY RN. RESPS E/U, SHALLOW. PT APPEARS PALE, BUT NO MOTTLING NOTED. NO ACUTE NEEDS ASSESSED AT THIS TIME. CALL LIGHT, POSSESSIONS IN REACH, BED IN LOW POSITION. CONTINUE TO MONITOR AND PROVIDE FOR COMFORT.
--- NOTE | 2020-07-16 19:53 | NUR ---
END OF SHIFT SUMMARY: PATIENT COMFORT MANAGED WITH PO PRNS. PATIENT VISITED BY AGRICULTURAL REAL ESTATE AGENT AND PALLIATIVE CARE. PATIENT BREATHING STAYED EVEN, REGULAR AND SHALLOW THROUGHOUT SHIFT. PATIENT'S FACIAL FEATURES APPEAR SLIGHTLY DARKER AND MORE SUNKEN. NO MOTTLING NOTED ON EXTREMITIES. EXTREMITIES ARE SLIGHTLY COOL AND NORMAL COLORATION. PATIENT CONTINUES TO HAVE DARK YELLOW URINE OUTPUT IN KHAN.
--- NOTE | 2020-07-17 07:27 | NUR ---
SHIFT SUMMARY PT HAS HAD NO ACUTE CHANGES IN CONDITION T/O NIGHT, COMFORT MEASURES CONTINUE. NO MOTTLING NOTED, RESPS CONTINUE TO BE E/U, BUT SHALLOW. MEDICATED FOR NON-VERBAL S/S PAIN PER EMAR. SON, GLORIA, UPDATED ON PT CONDITION THIS AM. ALLOWED TIME FOR QUESTIONS, CONCERNS. PT APPEARS COMFORTABLE AT THIS TIME, IN NO ACUTE DISTRESS. BED IN LOW POSITION. REPORT GIVEN TO JIN PRO.
--- NOTE | 2020-07-17 10:07 | NUR ---
Comfort Care Visit Pt reting in bed with her eyes closed upon arrival. Pt appears comfortable with no S/S of distress at this time. Spoke with Bedside RN Kisha and discussed case. No concerns reported at this time. Palliative Care will remain available.
--- NOTE | 2020-07-17 10:56 | NUR ---
PT SLEEPING PEACEFULLY. REPOSITIONED BY STAFF.
--- NOTE | 2020-07-17 14:00 | NUR ---
PT REPOSITIONED. NO DISTRESS NOTED.
--- NOTE | 2020-07-17 16:14 | NUR ---
Spiritual care note: I stopped by areli's room this morning. No family present. Breaths very shallow. I held her hand for awhile and prayed for her. [facility] [facility] will remain available.
--- NOTE | 2020-07-17 18:29 | NUR ---
NO ACUTE CHANGES ON PT. FAMILY HAS BEEN IN DURING THE SHIFT. MEDICATED PER EMAR NEEDED.
--- NOTE | 2020-07-17 19:32 | NUR ---
ASSUMED CARE PT ASLEEP, IN NO ACUTE DISTRESS. RESPS E/U, SHALLOW. APPEARS COMFORTABLE. CONTINUE TO MONITOR.
--- NOTE | 2020-07-17 23:32 | NUR ---
PT ASLEEP, RESPS E/U. APPEARS COMFORTABLE. NO ACUTE S/S DISTRESS NOTED. CONTINUE TO MONITOR.
--- NOTE | 2020-07-18 03:50 | NUR ---
PT RESTING, RESPS E/U, SHALLOW. THIS RN CALLED SONGLORIA, TO UPDATE ON PT CONDITION. ALLOWED FOR QUESTIONS/CONCERNS. CONTINUE TO MONITOR.
--- NOTE | 2020-07-18 05:45 | NUR ---
SHIFT SUMMARY PT ASLEEP, IN NO ACUTE DISTRESS. SLEEPING T/O MUCH OF THE NIGHT, NO ACUTE DISTRESS NOTED. NO MOTTLING NOTED AT THIS TIME, RESPS REMAIN E/U, SHALLOW. APPEARS COMFORTABLE. CALL LIGHT, POSSESSIONS IN REACH, BED IN LOW POSITION. CONTINUE TO MONITOR, REPORT OFF TO DAY RN.
--- NOTE | 2020-07-18 08:42 | NUR ---
PT SLEEPING, NO DISTRESS NOTED. WILL CONTINUE TO MONITOR.
--- NOTE | 2020-07-18 08:43 | NUR ---
PT SLEEPING,NO DISTRESS NOTED.
--- NOTE | 2020-07-18 12:04 | NUR ---
Pt positioned for comfort no s/s of airhunger no grimace or tightening.
--- NOTE | 2020-07-18 18:10 | NUR ---
PT SLEEPING . NO DISTRESS NOTED.
--- NOTE | 2020-07-18 18:10 | NUR ---
NO ACUTE CHANGES. PT IS NOT MOTTLING AT THIS TIME. NO AGINAL BREATHING NOTED. PT HAD ROXINOL ONCE THIS SHIFT. WILL CONTINUE TO MONITOR.
--- NOTE | 2020-07-19 05:09 | NUR ---
SHIFT SUMMARY NO ACUTE CHANGES THIS SHIFT, NO SIGNS/SX OF DISCOMFORT, REPOS Q2, AK TYLENOL X1, NO VISITORS THIS SHIFT, BED ALARM ACTIVE, WILL CONT TO MONITOR UNTIL REPORT GIVEN TO DAY RN.
--- NOTE | 2020-07-19 07:57 | NUR ---
PT APPEARS TO BE COMFORTABLE AT THIS TIME, EYES OPEN
--- NOTE | 2020-07-19 09:40 | NUR ---
GAVE MORPHINE 20 MG FOR AIR HUNGER, PT REPOSITIONED, APPEARS COMFORTABLE, EYES OPEN
--- NOTE | 2020-07-19 10:05 | NUR ---
DR. PORRAS TALKED WITH THE FAMILY, FAMILY CONCERNED PT MAY NOT BE COMFORTABLE SHE COULD BE, AT THIS TIME THE PT APPEARS COMFORTABLE
--- NOTE | 2020-07-19 10:47 | NUR ---
LABORED BREATHING, GAVE ATIVAN 2MG
--- NOTE | 2020-07-19 12:15 | NUR ---
pt appears to be comfortable at this time
--- NOTE | 2020-07-19 13:36 | NUR ---
GAVE MORPHINE FOR AIR HUNGER, PT APPEARS TO BE COMFORTABLE AT THIS TIME
--- NOTE | 2020-07-19 14:40 | NUR ---
PTS EYES OPEN, BREATHING LABORED GAVE ATIVAN 2 MG, PT WAS REPOSITIONED EARLIER
--- NOTE | 2020-07-19 16:08 | NUR ---
PT SON WAS IN, GAVE MORPHINE AT THIS TIME FOR AIR HUNGER, WILL CONTINUE TO MONITOR FOR CHANGES
--- NOTE | 2020-07-19 17:53 | NUR ---
PT APPEARS TO BE RESTING COMFORTABLY AT THIS TIME, THE PTS AND SON WAS IN TO SEE THE PT TODAY AT DIFFERENT TIMES, THE PT WAS GIVEN MORPHINE AND ATIVAN T/O THE DAY FOR AIR HUNGER, PT WAS REPOSITIONED T/O THE DAY, WILL CONTINUE TO MONITOR AND ASSESS FOR CHANGES
--- NOTE | 2020-07-20 02:09 | NUR ---
CALL TO PACO (S/O) @ 0110- LEFT MESSAGE CALL TO NANDINI ([facility]) @ 0112- NO ANSWER, VOICEMAIL NOT SET UP CALL TO ROZINA ([facility] IN [place]) LEFT MESS, ROZINA IMMED RET CALL AND NOTIFIED HIM OF PASSING AND THAT THIS RN WAS UNABLE TO REACH OTHER 2 CONTACTS
--- NOTE | 2020-07-20 04:15 | NUR ---
PRIMARY RN ATTEMPTED TO CONTACT PT'S S.O. KRISTINE AND SON DANNA AT TIME OF PT'S PASSING. ROZINA WAS REACHED BUT UNABLE TO GIVE ANY INFORMATION RE CHOICE OF HOME. I JUST NOW ATTEMPTED A SECOND TIME TO REACH KRISTINE AND DANNA AND WAS UNABLE TO REACH THEM. WE NOW AT THIS TIME MUST CONTACT THE NEXT HOME COBBLER APPRENTICE WE ARE UNABLE TO HOLD THE PT IN THE ROOM.
--- NOTE | 2020-07-20 06:02 | NUR ---
KRISTINE (S/O) RETURNED CALL @ 0600, NOTIFIED HIM OF PT PASSING AND NAME OF HOME
== END 2020-07-20 00:54 | DRG 207 ==
LOC: ER 16:08 → ICUW 18:08 → MEDS 18:08 → ICUW 18:50 → MEDS 07-13 16:14
PROVIDERS: Emergency Medicine; Internal Medicine Critical Care Medicine; ADMIT Internal Medicine
PROC: 0BH17EZ Insertion of Endotracheal Airway into Trachea, Via Natural or Artificial Opening (ICD-10-PCS; principal; 2020-07-06)
PROC: 5A1955Z Respiratory Ventilation, Greater than 96 Consecutive Hours (ICD-10-PCS; 2020-07-06)
PROC: 009U3ZX Drainage of Spinal Canal, Percutaneous Approach, Diagnostic (ICD-10-PCS; 2020-07-06)
DX: J96.01 Acute respiratory failure with hypoxia (principal); R40.20 Unspecified coma; G92 Toxic encephalopathy; G93.1 Anoxic brain damage, not elsewhere classified; N39.0 Urinary tract infection, site not specified; P91.60 Hypoxic ischemic encephalopathy [HIE], unspecified; A52.16 Charcot's arthropathy (tabetic); Z51.5 Encounter for palliative care; Z20.822 Contact with and (suspected) exposure to COVID-19; Z66 Do not resuscitate; E03.9 Hypothyroidism, unspecified; I12.9 Hypertensive chronic kidney disease with stage 1 through stage 4 chronic kidney disease, or unspecified chronic kidney disease; E11.22 Type 2 diabetes mellitus with diabetic chronic kidney disease; N18.30 Chronic kidney disease, stage 3 unspecified; E87.5 Hyperkalemia; J44.9 Chronic obstructive pulmonary disease, unspecified; G89.4 Chronic pain syndrome; I48.0 Paroxysmal atrial fibrillation; F41.9 Anxiety disorder, unspecified; F32.9 Major depressive disorder, single episode, unspecified; K21.9 Gastro-esophageal reflux disease without esophagitis; E78.5 Hyperlipidemia, unspecified; Z87.891 Personal history of nicotine dependence; E11.649 Type 2 diabetes mellitus with hypoglycemia without coma; G47.33 Obstructive sleep apnea (adult) (pediatric); K74.60 Unspecified cirrhosis of liver; B96.20 Unspecified Escherichia coli [E. coli] as the cause of diseases classified elsewhere; Z86.711 Personal history of pulmonary embolism; Z91.81 History of falling; S93.402A Sprain of unspecified ligament of left ankle, initial encounter; W19.XXXA Unspecified fall, initial encounter
CPT/HCPCS: 0241U; 31500; 31720; 36415; 36600; 51702; 70450; 71045; 72125; 73610; 80048; 80053; 81001; 82140; 82330; 82550; 82553; 82803; 82945; 82947; 83605; 83735; 84100; 84132; 84146; 84157; 84443; 84484; 85025; 87070; 87077; 87086; 87186; 87205; 87483; 89051; 93005; 93010; 94002; 94003; 94640; 95819; 96374-59; 96375-59; 99284-25; 99285-25; A9270; C1751; J0330; J0610; J0696; J1650; J1815; J1885; J1940; J1956; J2060; J2704; J3010; J3475; J7030; J7042; J7050; J7060